=== PATIENT | female | born 1995 | race Caucasian/White ===

== ENCOUNTER 2016-05-17 18:23 | Emergency (ER) | payer OTHER ==
[2016-05-17] MEDS ORDERED: Al Hydrox/Mg Hydrox/Simet LIQ* 30 ML UDC PO ONE (19:08)
[2016-05-17] MEDS ORDERED: Ranitidine TAB (NF) 150 MG TAB PO ONE (19:10)
--- NOTE | 2016-05-17 19:23 | ED ---
HPI Chest Pain - HPI Summary HPI Summary: 35 week pt here w/ central chest pain since this morning. Constant - feels like a dull ache w/ intermittent sharp pain exacerbated and alleviated by nothing. Denies new onset of shortness of breath - has been experiencing this w/ reclining only since and unchanged today. No radiating pain into arm/jaw, no diaphoresis. Has nausea throughout which she had again this morning as well. Denies vomiting. Eating and drinking do not alleviate nor exacerbate her sx. She's also tried tums w/o relief. She does report a h/o GERD, even before . Also reports taking flagyl for 5 days now d/t a BV infection which presented as ab pain w/ sitting up - better since taking flagyl. No injury, trauma to chest nor overuse of UE's. Denies resp sx/illness such as fever, chills, coughing, sneezing, rhinorrhea, otalgia, ST, skin changes (ie, rash, vesicles, bruising). No known sick contacts. Imms are UTD, including influenza vaccine which she received earlier on in . Takes daily prenantal vit w/ iron. No known h/o anemia. No h/o issues w/ clotting abnormally - denies prolonged sitting, travel, calf pain, increased heart rate. She does mention she had an issue while on control ( implanon) w/ sx of dizziness and change in blood pressure. No known issues w/ BP throughout and follows w/ OBGYN routinely. Feels baby moving. - History of Current Complaint Chief Complaint: EDChestWallPain Time Seen by Provider: 05/17/16 18:46 Hx Obtained From: Patient, Family/Test Preparer - partner Pain Intensity: 4 - Allergy/Home Medications Allergies/Adverse Reactions: Allergies Allergy/AdvReac Type Severity Reaction Status Date / Time Sulfa Antibiotics Allergy Intermediate Hives Verified 05/17/16 18:54 Home Medications: Home Medications metroNIDAZOLE TAB* [Flagyl 250 mg TAB*] 250 mg PO BID 05/17/16 [History Confirmed 05/17/16] PMH/Surg Hx/FS Hx/Imm Hx Previously Healthy: Yes Endocrine/Hematology History: Denies: Hx Anticoagulant Therapy, Hx Diabetes, Hx Thyroid Disease, Hx Anemia , Hx Coagulopothy, Autoimmune Disease Cardiovascular History: Reports: Other Cardiovascular Problems/Disorders - BP issues while on control Denies: Hx Aneurysm, Hx Congenital Heart Disease, Hx Deep Vein Thrombosis, Hx Embolism, Hx Hypertension, Hx Myocardial Infarction, Hx Pacemaker/ICD, Hx Valvular Heart Disease Respiratory History: Denies: Hx Asthma, Hx Chronic Obstructive Pulmonary Disease (COPD), Hx Pneumonia, Hx Pulmonary Embolism GI History: Reports: Hx Gastroesophageal Reflux Disease Denies: Hx Cirrhosis, Hx Crohn's Disease, Hx Diverticulosis, Hx Gall Bladder Disease, Hx Gastrointestinal Bleed, Hx Hiatal Hernia, Hx Irritable Bowel, Hx Ulcer History: Denies: Hx Renal Disease Sensory History: Reports: Hx Contacts or Glasses Opthamlomology History: Reports: Hx Contacts or Glasses Neurological History: Reports: Hx Headaches - Frequent H/A Denies: Hx Dementia, Hx Seizures Psychiatric History: Denies: Hx Substance Abuse - Immunization History Date of Tetanus Vaccine: Up to Date Date of Influenza Vaccine: December 2011 Infectious Disease History: No Infectious Disease History: Denies: Hx Hepatitis, Hx Human Immunodeficiency Virus (HIV), Traveled Outside the [place] in Last 30 Days - Family History Known Family History: Positive: Cardiac Disease - elderly family - Social History Occupation: Employed Full-time Lives: With Family Alcohol Use: None Hx Substance Use: No Substance Use Type: Reports: None Hx Tobacco Use: No Smoking Status (MU): Never Smoked Tobacco Review of Systems Negative: Fever, Chills, Fatigue ENT: Negative Negative: Dental Pain Cardiovascular: Other - see HPI Positive: Shortness Of Breath - see HPI. Negative: Cough Gastrointestinal: Other - moving bowels and urinating as usual w/o difficulty Positive: Nausea. Negative: Abdominal Pain, Vomiting, Diarrhea Positive: no symptoms reported Musculoskeletal: Negative Skin: Negative Neurological: Negative Psychological: Normal All Other Systems Reviewed And Are Negative: Yes Physical Exam Triage Information Reviewed: Yes Vital Signs On Initial Exam: Initial Vitals Temp Pulse Resp BP Pulse Ox 99.0 F 99 24 153/96 100 05/17/16 18:24 05/17/16 18:24 05/17/16 18:24 05/17/16 18:24 05/17/16 18:24 Vital Signs Reviewed: Yes Appearance: Positive: Well-Appearing, No Pain Distress, Well-Nourished Skin: Positive: Warm, Dry - no erythema, no vesicles over chest Head/Face: Positive: Normal Head/Face Inspection Eyes: Positive: Normal, EOMI, Conjunctiva Clear - anictertic sclera ENT: Positive: Hearing grossly normal, Pharynx normal - mucosa moist Neck: Positive: Supple, Nontender Respiratory/Lung Sounds: Positive: Clear to Auscultation, Breath Sounds Present. Negative: Rales, Rhonchi, Stridor, Wheezes Cardiovascular: Positive: Normal - possible mild TTP over sternum?, RRR, Pulses are Symmetrical in both Upper and Lower Extremities, S1, S2. Negative: Murmur, Rub, Leg Edema Left, Leg Edema Right - (-) Joyce's sign B/L Abdomen Description: Positive: Soft, Other: - ab - mild TTP over epigastric area - difficult to asses normally d/t body habitus. Negative: CVA Tenderness (R), CVA Tenderness (L), Hernia @ Bowel Sounds: Positive: Present Pelvic Exam: Positive: other - deferred Musculoskeletal: Positive: Normal, Strength/ROM Intact Neurological: Positive: Normal, Sensory/Motor Intact, Alert, Oriented to Person Place, Time, CN Intact II-III Psychiatric: Positive: Normal - [place] Coma Scale Coma Scale Total: 15 Diagnostics - Vital Signs Vital Signs Temp Pulse Resp BP Pulse Ox 05/17/16 18:40 105 118/88 97 05/17/16 18:24 99.0 F 99 24 153/96 100 - Laboratory Result Diagrams: 05/17/16 19:10 05/17/16 19:10 Lab Statement: Any lab studies that have been ordered have been reviewed, and results considered in the medical decision making process. Chest Pain Course/Dx - Course Course Of Treatment: 35 week pt here w/ chest pain. After ruling out life threatening pathologies and pt improving w/ GI cocktail, d/c'd w/ dx of GERD. Pt will f/u w/ [facility] and aware of danger s/sx of when to return to ED. HR was WNL for gestational age. - Diagnoses Provider Diagnoses: Gastroesophageal reflux disease, Discharge - Discharge Plan Condition: Stable Disposition: HOME Patient Education Materials: Gastroesophageal Reflux Disease (ED), at 35 to 38 Weeks (ED) Referrals: No Primary Care Phys,NOPCP [Primary Care Provider] - Additional Instructions: Your symptoms today appear to be related to GERD, a reflux disorder of the stomach and esophagus. With your fetus growing and pushing up into your diaphragm, this may persist or even worsen over the remaining course of your . You may take zantac and maalox for relief. It is also suggested that you try eating multiple small meals and avoid lying down after eating to prevent worsening of symptoms. *If you develop vomiting, fever, chills, abdominal pain, return to ED Follow-up with your OBGYN this week for other options if no relief with recommendations made today.
[2016-05-17 19:24] LABS: Hematocrit 37 % (35-47); Hemoglobin 12.4 g/dl (12.0-16.0); Mean Corpuscular HGB Conc 34 g/dl (31-36); Mean Corpuscular Hemoglobin 31 pg (27-31); Mean Corpuscular Volume 93 fL (80-97); Mean Platelet Volume 8 um3 (7.4-10.4); Red Blood Count 3.97 10^6/ul (4.0-5.4); Red Cell Distribution Width 13 % (10.5-15); White Blood Count 11.3 10^3/ul (3.5-10.8)
[2016-05-17] MEDS ORDERED: Famotidine TAB* 20 MG PO ONE (19:31)
[2016-05-17 19:40] LABS: Albumin 3.2 g/dL (3.2-5.2); BUN/Creatinine Ratio 27.5 (8-20); Calcium 8.9 mg/dL (8.6-10.3); EGFR African American 193.9 (>60); EGFR Non-African American 150.8 (>60); Globulin 3.2 g/dL (2-4); Magnesium 1.8 mg/dL (1.9-2.7); Total Bilirubin 0.4 mg/dL (0.2-1.0); Total Protein 6.4 g/dL (6.4-8.9)
[2016-05-17 20:18] LABS: TSH (Thyroid Stimulating Horm) 2.7 mcIU/mL (0.34-5.60)
[2016-05-17 20:44] LABS: Urine Bacteria 1+ (Absent); Urine Bilirubin Negative (Negative); Urine Glucose Negative (Negative); Urine Nitrite Negative (Negative)
[2016-05-17 21:27] VITALS: BP 117/63
== END 2016-05-17 21:26 | disposition home or self-care (01) ==
LOC: ED 18:23
DX: K21.9 Gastro-esophageal reflux disease without esophagitis (principal); O26.93 Pregnancy related conditions, unspecified, third trimester; R07.9 Chest pain, unspecified; Z3A.35 35 weeks gestation of pregnancy; R06.02 Shortness of breath; R11.0 Nausea
CPT/HCPCS: 36415; 80053; 81003; 81015; 83605; 83690; 83735; 84443; 84484; 85025; 87086; 93005; 99283; A9270-GY

== ENCOUNTER 2016-06-10 14:18 | Inpatient (IN) | payer OTHER ==
[2016-06-10 15:53] LABS: Hematocrit 39 % (35-47); Hemoglobin 12.5 g/dl (12.0-16.0); Mean Corpuscular HGB Conc 33 g/dl (31-36); Mean Corpuscular Hemoglobin 30 pg (27-31); Mean Corpuscular Volume 93 fL (80-97); Mean Platelet Volume 10 um3 (7.4-10.4); Red Blood Count 4.12 10^6/ul (4.0-5.4); Red Cell Distribution Width 13 % (10.5-15); White Blood Count 17.9 10^3/ul (3.5-10.8)
[2016-06-10 15:59] LABS: Add Diff/Slide Review? Slide Review Added; Comments Flag Yes
[2016-06-10] MEDS ORDERED: OBEPIDURAL* 250 ML ONE (16:31)
[2016-06-10] MEDS ORDERED: Phenylephrine IV* 40 MCG/ML 10 ML SYRINGE IV PUSH PRN ×2 (19:27)
[2016-06-10] MEDS ORDERED: EPHEDrine (Pressors)* 50 MG/ML VIAL IV PUSH PRN ×2 (19:27)
[2016-06-10] MEDS ORDERED: OBEPIDURAL* 250 ML EPIDURAL SCH (20:00)
[2016-06-11] MEDS ORDERED: Oxytocin in LR* 0 UNITS/0 ML BAG IVPB ONE (00:33)
[2016-06-11] MEDS ORDERED: Witch Hazel PAD* JAR TOPICAL PRN (01:39)
[2016-06-11] MEDS ORDERED: Acetaminophen TAB* 325 MG PO PRN (01:39)
[2016-06-11] MEDS ORDERED: Dibucaine 1% 28.35 GM TUBE PR PRN (01:39)
[2016-06-11] MEDS ORDERED: Glycerin ADULT SUPP PR PRN (01:39)
[2016-06-11] MEDS: Ibuprofen TAB* 600 MG PO PRN ×3 (04:21→18:20)
[2016-06-11] MEDS: Docusate CAP* 100 MG PO SCH ×3 (09:10→22:43)
[2016-06-12 07:14] LABS: Hematocrit 32 % (35-47); Hemoglobin 10.4 g/dl (12.0-16.0); Mean Corpuscular HGB Conc 33 g/dl (31-36); Mean Corpuscular Hemoglobin 31 pg (27-31); Mean Corpuscular Volume 94 fL (80-97); Mean Platelet Volume 9 um3 (7.4-10.4); Red Blood Count 3.37 10^6/ul (4.0-5.4); Red Cell Distribution Width 13 % (10.5-15); White Blood Count 15.3 10^3/ul (3.5-10.8)
[2016-06-12] MEDS: Docusate CAP* 100 MG PO SCH ×3 (08:51→22:15)
[2016-06-12] MEDS: Ibuprofen TAB* 600 MG PO PRN ×3 (08:53→22:15)
[2016-06-12] MEDS ORDERED: Ferrous Gluconate TAB* 324 MG TAB PO SCH (09:00)
[2016-06-13] MEDS: Ibuprofen TAB* 600 MG PO PRN (08:25)
[2016-06-13] MEDS: Docusate CAP* 100 MG PO SCH (08:25)
[2016-06-13 08:35] VITALS: BP 103/61
== END 2016-06-13 11:26 | disposition home or self-care (01) | DRG 560 ==
LOC: MCHOBOUT 14:18 → MCHOB 14:41
PROVIDERS: ADMIT Midwife; ATTEND Midwife
PROC: 10E0XZZ Delivery of Products of Conception, External Approach (ICD-10-PCS; principal; 2016-06-11)
PROC: 10907ZC Drainage of Amniotic Fluid, Therapeutic from Products of Conception, Via Natural or Artificial Opening (ICD-10-PCS; 2016-06-11)
PROC: 0KQM0ZZ Repair Perineum Muscle, Open Approach (ICD-10-PCS; 2016-06-11)
DX: O70.1 Second degree perineal laceration during delivery (principal); Z37.0 Single live birth; Z88.2 Allergy status to sulfonamides; Z3A.39 39 weeks gestation of pregnancy; Z91.030 Bee allergy status
CPT/HCPCS: 36415; 85025; 85027; 86850; 86900; 86901; A9270-GY

== ENCOUNTER 2016-08-15 08:55 | Emergency (ER) | payer OTHER ==
[2016-08-15 09:09] VITALS: BP 109/60
--- NOTE | 2016-08-15 10:17 | UC ---
Dental HPI - HPI Summary HPI Summary: Patient arrives to with CC of pain over left lower molar radiating to the jaw and ear with slight swelling x 2 days. Denies trismus, drooling or dysphagia. Pain is 5/10, sharp and throbbing. Denies airway compromise or SOB. Denies ear pain, eye pain, blurry vision or double vision. Otherwise healthy. Pain is worse with chewing and cold drinks, better with Tylenol, but only improves slightly. She is currently . - History of Current Complaint Chief Complaint: UCDentalProblem Stated Complaint: DENTAL COMPLAINT Time Seen by Provider: 08/15/16 10:03 Hx Obtained From: Patient Hx Last Menstrual Period: 06/11/16 delivered boy ?: No Onset/Duration: Sudden Onset Pain Intensity: 5 Pain Scale Used: 0-10 Numeric Aggravating: Cold Alleviating: Nothing Related History: Swelling - Allergies/Home Medications Allergies/Adverse Reactions: Allergies Allergy/AdvReac Type Severity Reaction Status Date / Time Sulfa Antibiotics Allergy Intermediate Hives Verified 08/15/16 09:09 PMH/Surg Hx/FS Hx/Imm Hx Previously Healthy: Yes Other History Of: Negative For: Anticoagulant Therapy - Surgical History Surgical History: None - Family History Known Family History: Positive: Cardiac Disease - elderly family - Social History Occupation: Employed Full-time Lives: With Family Alcohol Use: None Substance Use Type: None Smoking Status (MU): Never Smoked Tobacco Have You Smoked in the Last Year: No - Immunization History Most Recent Influenza Vaccination: 12/15/15 Most Recent Tetanus Shot: 2012 Most Recent Pneumonia Vaccination: 2012 Review of Systems Constitutional: Negative Skin: Negative Eyes: Negative ENT: Dental Pain Respiratory: Negative Cardiovascular: Negative Neurovascular: Negative Musculoskeletal: Negative Neurological: Negative All Other Systems Reviewed And Are Negative: Yes Physical Exam Triage Information Reviewed: Yes Appearance: Well-Appearing, No Pain Distress, Well-Nourished Vital Signs: Initial Vital Signs Temp 98.2 F 08/15/16 09:06 Pulse 55 08/15/16 09:06 Resp 18 08/15/16 09:06 BP 109/60 08/15/16 09:06 Pulse Ox 100 08/15/16 09:06 Vital Signs Reviewed: Yes Eye Exam: Normal Eyes: Positive: Conjunctiva Clear ENT: Positive: Pharynx normal Dental: Positive: Percussion Tenderness @ - left lower molar Neck exam: Normal Neck: Positive: Supple, No Lymphadenopathy, Other: - tenderness at anterior cervical LN Respiratory Exam: Normal Respiratory: Positive: Chest non-tender, Lungs clear Cardiovascular Exam: Normal Cardiovascular: Positive: RRR Musculoskeletal Exam: Normal Musculoskeletal: Positive: Strength Intact, ROM Intact Psychological Exam: Normal Psychological: Positive: Normal Response To Family, Age Appropriate Behavior Skin Exam: Normal Dental Complaint Course/Dx - Course Course Of Treatment: No dental abscess or lesions seen over area of concern. No erythema at site of pain. No drainage from area. Pain on palpation over mandible. No TMJ tenderness. Slight pain with opening and closing mouth. Will treat for possible dental infection/abscess based on symptoms of pain and radiation to jaw and ear. No allergies. Will treat with Keflex. Patient to follow up immediately with dentist. Patient is , per UTD, Keflex safe in women. Encouraged Tylenol. - Differential Dx/Diagnosis Differential Diagnosis/Dx: Dental Abscess, Dental Caries, Odontogenic Pain Provider Diagnoses: Dental Pain Discharge - Discharge Plan Condition: Stable Disposition: HOME Prescriptions: Cephalexin CAP* [Keflex CAP*] 500 mg PO QID #28 cap MDD 4 Patient Education Materials: Dental Abscess (ED) Referrals: No Primary Care Phys,NOPCP [Primary Care Provider] - Additional Instructions: You have been diagnosed with dental pain with possible infection: Antibiotics as prescribed to you. 500mg Keflex 4 x daily x 7 days. Salt water rinses several times per day will improve healing time. Tylenol three times daily with meals for discomfort. Follow up with a dentist for routine care to prevent recurrence of infections. If fever, worsening pain or swelling develops, see your PCP, dentist or come back to the Emergency Department. Images Dental: 1 - pain with swelling, no evidence of abscess
== END 2016-08-15 10:15 | disposition home or self-care (01) ==
LOC: UCEAST 08:55
DX: K08.89 Other specified disorders of teeth and supporting structures (principal)
CPT/HCPCS: 99212; G0463

== ENCOUNTER 2016-11-11 09:55 | Emergency (ER) | payer OTHER ==
[2016-11-11] MEDS ORDERED: Ketorolac INJ* 30 MG/ML 1 ML VIAL IV ONE (10:27)
[2016-11-11] MEDS ORDERED: Metoclopramide IV* 5 MG/ML 2 ML VIAL IV ONE (10:27)
[2016-11-11] MEDS ORDERED: NS 0.9% 1000 ML* 1,000 ML IV ONE (10:27)
[2016-11-11] MEDS ORDERED: diPHENhydraMINE IV* 50 MG/ML 1 ml VIAL (BENADRYL) IV ONE (10:29)
[2016-11-11 10:52] LABS: Hematocrit 41 % (35-47); Mean Corpuscular HGB Conc 34 g/dl (31-36); Mean Corpuscular Hemoglobin 30 pg (27-31); Mean Corpuscular Volume 89 fL (80-97); Mean Platelet Volume 8 um3 (7.4-10.4); Red Blood Count 4.66 10^6/ul (4.0-5.4); Red Cell Distribution Width 13 % (10.5-15); White Blood Count 5.7 10^3/ul (3.5-10.8)
[2016-11-11 11:04] LABS: ALT 13 U/L (7-52); AST 11 U/L (13-39); Albumin 4.4 g/dL (3.2-5.2); Alkaline Phosphatase 76 U/L (34-104); Anion Gap 6 mmol/L (2-11); BUN/Creatinine Ratio 28.4 (8-20); Blood Urea Nitrogen 21 mg/dL (6-24); C Reactive Protein 3.37 mg/L (< 5.00); CO2 Carbon Dioxide 26 mmol/L (22-32); Calcium 9.3 mg/dL (8.6-10.3); Chloride 105 mmol/L (101-111); EGFR African American 126.2 (>60); EGFR Non-African American 98.1 (>60); Globulin 2.7 g/dL (2-4); Glucose 105 mg/dL (70-100); Lipase 12 U/L (11.0-82.0); Potassium 3.9 mmol/L (3.5-5.0); Sodium 137 mmol/L (133-145); Total Protein 7.1 g/dL (6.4-8.9)
[2016-11-11 11:10] LABS: Urine Bacteria Absent (Absent); Urine Bilirubin Negative (Negative); Urine Glucose Negative (Negative); Urine Nitrite Negative (Negative)
[2016-11-11 11:51] VITALS: BP 102/65
--- NOTE | 2016-11-11 12:20 | ED ---
Influenza-Like Illness - HPI Summary HPI Summary: Patient presents to the ED with flu like symptoms. She presents with N/V and migraine THOMAS x 2 days which has been worsening today. She states today is the first day of going back to work from her maternity leave and has a history of anxiety. She notes to some anxiety while driving to work today, but thought it was unrelated to her other symptoms. She states she has had similar symptoms of feelings of flu-like illness when she was on OCP's. Since discontinuing her OCP use, she has not had any complaints until today. Denies abdominal pain, back pain or urinary symptoms. Denies recent illness, sick contacts or travel. She denies constipation and diarrhea. Vomiting x 2 without hematemesis. Denies vaginal bleeding. Denies chance of . She endorses sweats and chills but denies fevers. She is otherwise healthy and takes no medications. She denies SOB, chest pain, weakness, stiff neck, blurry vision or double vision. Visual disturbances include photophobia. Hx of migraine THOMAS for which she takes ibuprofen for relief. Denies this helping this morning. On arrival to ED she is feeling improved, but would still like blood work. - History of Current Complaint Chief Complaint: EDGeneral Time Seen by Provider: 11/11/16 10:07 Hx Obtained From: Patient Onset/Duration: Gradual Onset Severity: Moderate Associated Signs & Symptoms: F/C, Headache, Vomiting Related Hx: Possible Flu/Infectious Exposure - Risk Factors Influenza Risk Factors: Negative - Allergy/Home Medications Allergies/Adverse Reactions: Allergies Allergy/AdvReac Type Severity Reaction Status Date / Time Sulfa Antibiotics Allergy Intermediate Hives Verified 11/11/16 10:05 PMH/Surg Hx/FS Hx/Imm Hx Previously Healthy: Yes Endocrine/Hematology History: Denies: Hx Anticoagulant Therapy, Hx Diabetes, Hx Thyroid Disease, Hx Anemia Cardiovascular History: Reports: Other Cardiovascular Problems/Disorders - BP issues while on control Denies: Hx Aneurysm, Hx Congenital Heart Disease, Hx Deep Vein Thrombosis, Hx Embolism, Hx Hypertension, Hx Myocardial Infarction, Hx Pacemaker/ICD, Hx Valvular Heart Disease Respiratory History: Denies: Hx Asthma, Hx Chronic Obstructive Pulmonary Disease (COPD), Hx Pneumonia, Hx Pulmonary Embolism GI History: Reports: Hx Gastroesophageal Reflux Disease Denies: Hx Cirrhosis, Hx Crohn's Disease, Hx Diverticulosis, Hx Gall Bladder Disease, Hx Gastrointestinal Bleed, Hx Hiatal Hernia, Hx Irritable Bowel, Hx Ulcer History: Denies: Hx Renal Disease Sensory History: Reports: Hx Contacts or Glasses Opthamlomology History: Reports: Hx Contacts or Glasses Neurological History: Reports: Hx Headaches - Frequent H/A Denies: Hx Dementia, Hx Seizures Psychiatric History: Denies: Hx Substance Abuse - Immunization History Date of Tetanus Vaccine: Up to Date Date of Influenza Vaccine: December 2011 Infectious Disease History: No Infectious Disease History: Denies: Hx Hepatitis, Hx Human Immunodeficiency Virus (HIV), Traveled Outside the [place] in Last 30 Days - Family History Known Family History: Positive: Cardiac Disease - elderly family - Social History Occupation: Employed Part-time Lives: With Family Alcohol Use: None Hx Substance Use: No Substance Use Type: Reports: None Hx Tobacco Use: No Smoking Status (MU): Never Smoked Tobacco Have You Smoked in the Last Year: No Review of Systems Constitutional: Negative Positive: Chills, Fatigue, Skin Diaphoresis. Negative: Fever Positive: Photophobia. Negative: Blurred Vision, Diplopia ENT: Negative Cardiovascular: Negative Negative: Palpitations, Chest Pain Respiratory: Negative Negative: Shortness Of Breath, Cough Positive: Vomiting, Nausea. Negative: Abdominal Pain, Diarrhea Positive: no symptoms reported, see HPI Musculoskeletal: Negative Skin: Negative Positive: Headache. Negative: Weakness, Paresthesia, Numbness Positive: Anxious All Other Systems Reviewed And Are Negative: Yes Physical Exam Triage Information Reviewed: Yes Vital Signs On Initial Exam: Initial Vitals Temp Pulse Resp BP Pulse Ox 98.2 F 78 22 130/83 99 11/11/16 09:57 11/11/16 09:57 11/11/16 09:57 11/11/16 09:57 11/11/16 09:57 Vital Signs Reviewed: Yes Appearance: Positive: Well-Appearing, Well-Nourished Skin: Positive: Warm, Skin Color Reflects Adequate Perfusion Head/Face: Positive: Normal Head/Face Inspection Eyes: Positive: EOMI, TRAE, Conjunctiva Clear Neck: Positive: Supple, No Lymphadenopathy Respiratory/Lung Sounds: Positive: Clear to Auscultation, Breath Sounds Present Cardiovascular: Positive: Normal, RRR, Pulses are Symmetrical in both Upper and Lower Extremities Abdomen Description: Positive: Nontender, No Organomegaly, Soft. Negative: CVA Tenderness (R), CVA Tenderness (L), Distended, Guarding, McBur[place]'s Point Tenderness, Splenomegaly Bowel Sounds: Positive: Present Pelvic Exam: Positive: other - deferred Musculoskeletal: Positive: Normal, Strength/ROM Intact Neurological: Positive: Sensory/Motor Intact, Alert, Oriented to Person Place, Time, Speech Normal Psychiatric: Positive: Normal AVPU Assessment: Alert - [place] Coma Scale Coma Scale Total: 15 Diagnostics - Vital Signs Vital Signs Temp Pulse Resp BP Pulse Ox 11/11/16 11:52 88 18 102/65 11/11/16 11:34 102/65 11/11/16 11:33 71 99 11/11/16 11:30 68 99 11/11/16 11:00 86 121/72 98 11/11/16 10:30 66 14 142/94 98 11/11/16 10:02 98 17 99 11/11/16 10:00 129/78 11/11/16 09:57 98.2 F 78 22 130/83 99 - Laboratory Lab Results: Lab Results 11/11/16 11/11/16 11/11/16 Range/Units 10:34 10:34 10:45 WBC 5.7 (3.5-10.8) 10^3/ul RBC 4.66 (4.0-5.4) 10^6/ul Hgb 14.0 (12.0-16.0) g/dl Hct 41 (35-47) % MCV 89 (80-97) fL MCH 30 (27-31) pg MCHC 34 (31-36) g/dl RDW 13 (10.5-15) % Plt Count 231 (150-450) 10^3/ul MPV 8 (7.4-10.4) um3 Neut % (Auto) 59.4 (38-83) % Lymph % (Auto) 29.5 (25-47) % [place] % (Auto) 9.1 H (1-9) % Eos % (Auto) 1.7 (0-6) % Baso % (Auto) 0.3 (0-2) % Absolute Neuts (auto) 3.4 (1.5-7.7) 10^3/ul Absolute Lymphs (auto) 1.7 (1.0-4.8) 10^3/ul Absolute Monos (auto) 0.5 (0-0.8) 10^3/ul Absolute Eos (auto) 0.1 (0-0.6) 10^3/ul Absolute Basos (auto) 0 (0-0.2) 10^3/ul Absolute Nucleated RBC 0 10^3/ul Nucleated RBC % 0 Sodium 137 (133-145) mmol/L Potassium 3.9 (3.5-5.0) mmol/L Chloride 105 (101-111) mmol/L Carbon Dioxide 26 (22-32) mmol/L Anion Gap 6 (2-11) mmol/L BUN 21 (6-24) mg/dL Creatinine 0.74 (0.51-0.95) mg/dL Est GFR ( Amer) 126.2 (>60) Est GFR (Non-Af Amer) 98.1 (>60) BUN/Creatinine Ratio 28.4 H (8-20) Glucose 105 H (70-100) mg/dL Calcium 9.3 (8.6-10.3) mg/dL Total Bilirubin 0.90 (0.2-1.0) mg/dL AST 11 L (13-39) U/L ALT 13 (7-52) U/L Alkaline Phosphatase 76 (34-104) U/L C-Reactive Protein 3.37 (< 5.00) mg/L Total Protein 7.1 (6.4-8.9) g/dL Albumin 4.4 (3.2-5.2) g/dL Globulin 2.7 (2-4) g/dL Albumin/Globulin Ratio 1.6 (1-3) Lipase 12 (11.0-82.0) U/L Beta HCG, Quant < 0.60 mIU/mL Urine Color Yellow Urine Appearance Clear Urine pH 5.0 (5-9) Ur Specific [place] 1.023 (1.010-1.030) Urine Protein Negative (Negative) Urine Ketones Negative (Negative) Urine Blood 3+ H (Negative) Urine Nitrate Negative (Negative) Urine Bilirubin Negative (Negative) Urine Urobilinogen Negative (Negative) Ur Leukocyte Esterase Negative (Negative) Urine WBC (Auto) Absent (Absent) Urine RBC (Auto) 3+(>10/hpf) H (Absent) Ur Squamous Epith Cells Present H (Absent) Urine Bacteria Absent (Absent) Urine Glucose Negative (Negative) Influenza A (Rapid) (Negative) Influenza B (Rapid) (Negative) 11/11/16 Range/Units 10:47 WBC (3.5-10.8) 10^3/ul RBC (4.0-5.4) 10^6/ul Hgb (12.0-16.0) g/dl Hct (35-47) % MCV (80-97) fL MCH (27-31) pg MCHC (31-36) g/dl RDW (10.5-15) % Plt Count (150-450) 10^3/ul MPV (7.4-10.4) um3 Neut % (Auto) (38-83) % Lymph % (Auto) (25-47) % [place] % (Auto) (1-9) % Eos % (Auto) (0-6) % Baso % (Auto) (0-2) % Absolute Neuts (auto) (1.5-7.7) 10^3/ul Absolute Lymphs (auto) (1.0-4.8) 10^3/ul Absolute Monos (auto) (0-0.8) 10^3/ul Absolute Eos (auto) (0-0.6) 10^3/ul Absolute Basos (auto) (0-0.2) 10^3/ul Absolute Nucleated RBC 10^3/ul Nucleated RBC % Sodium (133-145) mmol/L Potassium (3.5-5.0) mmol/L Chloride (101-111) mmol/L Carbon Dioxide (22-32) mmol/L Anion Gap (2-11) mmol/L BUN (6-24) mg/dL Creatinine (0.51-0.95) mg/dL Est GFR ( Amer) (>60) Est GFR (Non-Af Amer) (>60) BUN/Creatinine Ratio (8-20) Glucose (70-100) mg/dL Calcium (8.6-10.3) mg/dL Total Bilirubin (0.2-1.0) mg/dL AST (13-39) U/L ALT (7-52) U/L Alkaline Phosphatase (34-104) U/L C-Reactive Protein (< 5.00) mg/L Total Protein (6.4-8.9) g/dL Albumin (3.2-5.2) g/dL Globulin (2-4) g/dL Albumin/Globulin Ratio (1-3) Lipase (11.0-82.0) U/L Beta HCG, Quant mIU/mL Urine Color Urine Appearance Urine pH (5-9) Ur Specific [place] (1.010-1.030) Urine Protein (Negative) Urine Ketones (Negative) Urine Blood (Negative) Urine Nitrate (Negative) Urine Bilirubin (Negative) Urine Urobilinogen (Negative) Ur Leukocyte Esterase (Negative) Urine WBC (Auto) (Absent) Urine RBC (Auto) (Absent) Ur Squamous Epith Cells (Absent) Urine Bacteria (Absent) Urine Glucose (Negative) Influenza A (Rapid) Negative (Negative) Influenza B (Rapid) Negative (Negative) Result Diagrams: 11/11/16 10:34 11/11/16 10:34 Lab Statement: Any lab studies that have been ordered have been reviewed, and results considered in the medical decision making process. Flu Symptom Course/Dx - Course Course Of Treatment: Patient is evaluated for N/V and migraine. During the course of treatment, labs were obtained and some dehydration noted but otherwise normal. 1L fluids given. Migraine is 9/10, not worst of life, and patient has a history of. Toradol 30mg, reglan and benadryl given with relief. Patient is requesting to go home feeling better. Flu negative. She notes it was likely d/t anxiety. Encouarged to follow up with PCP or return to ED for worsening symptoms. Return precautions given. Patient understands and agrees with plan. Ok for discharge. VS stable on arrival and discharge. - Diagnoses Differential Diagnosis/HQI/PQRI: Positive: Influenza, Pneumonia, Upper Respiratory Infection, Other - anxiety Provider Diagnoses: Migraine, Vomiting Discharge - Discharge Plan Condition: Stable Disposition: HOME Patient Education Materials: Migraine Headache (ED) Referrals: No Primary Care Phys,NOPCP [Primary Care Provider] - Additional Instructions: Follow up with your PCP If any symptoms become worse, return to the ED immediately.
== END 2016-11-11 11:54 | disposition home or self-care (01) ==
LOC: ED 09:55
DX: G43.909 Migraine, unspecified, not intractable, without status migrainosus (principal); R53.83 Other fatigue; R11.10 Vomiting, unspecified
CPT/HCPCS: 36415; 80053; 81003; 81015; 83690; 84702; 85025; 86140; 87502; 96374; 96375; 99282; J1200; J1885; J2765

== ENCOUNTER 2017-04-13 12:25 | Emergency (ER) | payer OTHER ==
[2017-04-13 14:40] VITALS: BP 102/67
--- NOTE | 2017-04-13 14:47 | UC ---
FLU HPI - HPI Summary HPI Summary: Aches chills cough and congestion for a couple of days - History of Current Complaint Chief Complaint: UCGeneralIllness Stated Complaint: SORE THROAT,COUGH Time Seen by Provider: 04/13/17 14:47 Hx Obtained From: Patient Hx Last Menstrual Period: 03/19/17 ?: No Onset/Duration: Sudden Onset Severity Currently: Moderate Severity Initially: Moderate Pain Intensity: 6 Pain Scale Used: 0-10 Numeric Associated Signs & Symptoms: Positive: Cough, Sore Throat, Nasal Congestion, Headache - Allergy/Home Medications Allergies/Adverse Reactions: Allergies Allergy/AdvReac Type Severity Reaction Status Date / Time Sulfa (Sulfonamide Allergy Hives Verified 04/13/17 12:37 Antibiotics) Home Medications: Home Medications NK [No Home Medications Reported] 04/13/17 [History Confirmed 04/13/17] PMH/Surg Hx/FS Hx/Imm Hx Previously Healthy: Yes Other History Of: Negative For: Anticoagulant Therapy - Surgical History Surgical History: None - Family History Known Family History: Positive: Cardiac Disease - elderly family - Social History Occupation: Unemployed Lives: With Family Alcohol Use: None Substance Use Type: None Smoking Status (MU): Never Smoked Tobacco Have You Smoked in the Last Year: No - Immunization History Most Recent Influenza Vaccination: 12/15/15 Most Recent Tetanus Shot: 2012 Most Recent Pneumonia Vaccination: 2012 Review of Systems Constitutional: Chills, Fatigue Skin: Negative Eyes: Negative ENT: Sore Throat, Nasal Discharge Respiratory: Cough Cardiovascular: Negative Gastrointestinal: Negative Genitourinary: Negative Motor: Negative Neurovascular: Negative Musculoskeletal: Myalgia Neurological: Headache Psychological: Negative Is Patient Immunocompromised?: No All Other Systems Reviewed And Are Negative: Yes Physical Exam Triage Information Reviewed: Yes Appearance: Well-Appearing, No Pain Distress, Well-Nourished Vital Signs: Initial Vital Signs Temp 97.9 F 04/13/17 12:37 Pulse 100 04/13/17 12:37 Resp 16 04/13/17 12:37 BP 117/71 04/13/17 12:37 Pulse Ox 100 04/13/17 12:37 Vital Signs Reviewed: Yes Eye Exam: Normal Eyes: Positive: Conjunctiva Clear ENT Exam: Normal ENT: Positive: Normal ENT inspection, Hearing grossly normal, Pharynx normal, TMs normal, Uvula midline. Negative: Nasal congestion, Nasal drainage, Trismus , Muffled voice, Hoarse voice, Dental tenderness, Sinus tenderness Neck exam: Normal Neck: Positive: Supple, Nontender, No Lymphadenopathy Respiratory Exam: Normal Respiratory: Positive: Chest non-tender, Lungs clear, Normal breath sounds, No respiratory distress, No accessory muscle use Cardiovascular Exam: Normal Cardiovascular: Positive: RRR, No Murmur, Pulses Normal, Brisk Capillary Refill Musculoskeletal Exam: Normal Musculoskeletal: Positive: Strength Intact, ROM Intact, No Edema Neurological Exam: Normal Neurological: Positive: Alert, Muscle Tone Normal Psychological Exam: Normal Skin Exam: Normal Diagnostics - Laboratory Diagnostic Studies Completed/Ordered: Influenza A/B (-) Flu Course/Dx - Course Course Of Treatment: increase fluids rest tylenol/ibuprofen otc medications for symptom relief follow with pcp - Differential Dx/Diagnosis Provider Diagnoses: Viral Syndrome, URI Discharge - Discharge Plan Condition: Stable Disposition: HOME Patient Education Materials: Upper Respiratory Infection (ED), Viral Syndrome ( ED) Forms: *Work Release Referrals: [facility] REFERRAL [Outside] - If Needed
== END 2017-04-13 15:31 | disposition home or self-care (01) ==
LOC: UCEAST 12:25
DX: B34.9 Viral infection, unspecified (principal); J06.9 Acute upper respiratory infection, unspecified; Z88.2 Allergy status to sulfonamides
CPT/HCPCS: 87502; 99211; G0463

== ENCOUNTER 2018-03-25 12:35 | Emergency (ER) | payer OTHER ==
[2018-03-25 13:29] VITALS: BP 107/71
--- NOTE | 2018-03-25 13:34 | UC ---
Throat Pain/Nasal [place] HPI - HPI Summary HPI Summary: 23 year old female presents with onset of sore throat 4 days ago. States next day developed fatigue, general malaise, headache, body aches, fever, nasal congestion, and non-productive cough. Max temperature 103.5 F. Last fever this morning. Today noted some white spots on her tonsils. Denies dysphagia, chest pain, shortnes of breath, abdominal pain, nausea, vomiting, or diarrhea. - History of Current Complaint Chief Complaint: UCGeneralIllness Stated Complaint: SORE THROAT Time Seen by Provider: 03/25/18 13:31 Hx Obtained From: Patient Hx Last Menstrual Period: 03/17/18 Pain Intensity: 8 - Allergies/Home Medications Allergies/Adverse Reactions: Allergies Allergy/AdvReac Type Severity Reaction Status Date / Time Sulfa (Sulfonamide Allergy Hives Verified 03/25/18 13:29 Antibiotics) PMH/Surg Hx/FS Hx/Imm Hx Previously Healthy: Yes - Denies significant PMH Other History Of: Negative For: Anticoagulant Therapy - Surgical History Surgical History: None Surgery Procedure, Year, and Place: denies - Family History Known Family History: Positive: Cardiac Disease - elderly family - Social History Occupation: Employed Full-time Lives: With Family Alcohol Use: None Substance Use Type: None Smoking Status (MU): Never Smoked Tobacco Have You Smoked in the Last Year: No - Immunization History Most Recent Influenza Vaccination: 12/15/15 Most Recent Tetanus Shot: 2012 Most Recent Pneumonia Vaccination: 2012 Review of Systems All Other Systems Reviewed And Are Negative: Yes Constitutional: Positive: Fever, Chills, Fatigue Skin: Negative: Rash Eyes: Negative: Drainage, Eye Redness ENT: Positive: Sore Throat, Nasal Discharge, Sinus Congestion. Negative: Ear Ache, Sinus Pain/Tenderness Respiratory: Positive: Cough. Negative: Shortness Of Breath Cardiovascular: Negative: Palpitations, Chest Pain Gastrointestinal: Negative: Abdominal Pain, Vomiting, Diarrhea, Nausea Genitourinary: Positive: Negative Musculoskeletal: Positive: Negative Neurological: Positive: Negative, Headache Physical Exam - Summary Physical Exam Summary: GENERAL APPEARANCE: Well developed, well nourished, alert and cooperative, and appears to be in no acute distress. EYES: Conjunctiva clear. No drainage. Vision is grossly intact. EARS: External auditory canals and tympanic membranes clear, hearing grossly intact. NOSE: Mild-moderate nasal congestion with mucosal erythema and edema. THROAT: Pharyngeal erythema. 2+ tonsils with exudate. Oral cavity normal. Teeth and gingiva in good general condition. NECK: Neck supple, non-tender without lymphadenopathy. CARDIAC: Normal S1 and S2. No S3, S4 or murmurs. Rhythm is regular. There is no peripheral edema, cyanosis or pallor. Extremities are warm and well perfused. Capillary refill is less than 2 seconds. LUNGS: Clear to auscultation without rales, rhonchi, wheezing or diminished breath sounds. Non-productive cough. ABDOMEN: Positive bowel sounds. Soft, nondistended, nontender. No guarding or rebound. No masses or hepatosplenomegally. MUSKULOSKELETAL: ROM intact to all extremities. No joint erythema or tenderness. Normal muscular development. Normal gait. SKIN: Skin normal color, texture and turgor with no lesions or eruptions. Triage Information Reviewed: Yes Vital Signs: Initial Vital Signs Temp 98.2 F 03/25/18 13:25 Pulse 97 03/25/18 13:25 Resp 92 03/25/18 13:25 BP 107/71 03/25/18 13:25 Pulse Ox 99 03/25/18 13:25 Vital Signs Reviewed: Yes Diagnostics - Laboratory Diagnostic Studies Completed/Ordered: Rapid strep negative. Throat Pain/Nasal Course/Dx - Course Course Of Treatment: 23 year old female presents with onset of sore throat 4 days ago. States next day developed fatigue, general malaise, headache, body aches, fever, nasal congestion, and non-productive cough. Max temperature 103.5 F. Last fever this morning. Today noted some white spots on her tonsils. Denies dysphagia, chest pain, shortnes of breath, abdominal pain, nausea, vomiting, or diarrhea. Afebrile. VSS. Exam revealed an adult female in no acute distress. Mild-moderate nasal congestion with mucosal erythema and edema. Pharyngeal erythema. 2+ tonsils with exudate. Bilateral breath sounds clear. Cough non- productive. Rapid strep negative. Recommending symptomatic treatment for viral URI vs influenza. She is to follow up with PCP within 7 days if no improvement in symptoms. Warning symptoms reviewed with patient. Verbalizes understanding and agrees with POC. - Differential Dx/Diagnosis Differential Diagnosis/HQI/PQRI: Influenza, Mononucleosis, Otitis Media, Peritonsillar Abscess, Pharyngitis, Tonsillitis, URI Provider Diagnosis: Viral URI with cough Discharge - Sign-Out/Discharge Documenting (check all that apply): Patient Departure All imaging exams completed and their final reports reviewed: No Studies - Discharge Plan Condition: Stable Disposition: HOME Patient Education Materials: Upper Respiratory Infection (ED) Referrals: No Primary Care Phys,NOPCP [Primary Care Provider] - Additional Instructions: The rapid strep test performed today was negative. Your history and exam are consistent with a viral upper respiratory infection. Viral infections do not respond to antibiotics and are limited to the treatment of symptoms. Viral infections typically run their course in 7-10 days. Drink plenty of fluids to avoid dehydration especially if you are running any fever. Use a saline rinse kit such as Neti Pot or NeilMed at least twice a day to help thin secretions and promote drainage of the sinuses. Use over the counter fluticasone (Flonase) nasal spray 2 sprays each nostril once daily. Use over the counter Sudafed according to directions to help with congestion. Take over the counter acetaminophen (Tylenol) or ibuprofen (Advil, Motrin) according to directions as needed for pain or fever. Use salt water gargles several times a day if you have a sore throat. You may also use Chloraseptic spray or Cepacol lonzenges according to directions which contain a numbing medication and can provide some temporary relief from your sore throat. Follow up with your primary care provider in 7 days if symptoms persist. Seek immediate medical attention in the emergency room if you have fever greater than 100.5 F despite taking acetaminophen or ibuprofen, have chest pain , difficulty breathing, are unable to swallow, or have any worsening of symptoms. - Billing Disposition and Condition Condition: STABLE Disposition: Home
== END 2018-03-25 14:18 | disposition home or self-care (01) ==
LOC: UCEAST 12:35
DX: J06.9 Acute upper respiratory infection, unspecified (principal); R05 Cough; Z88.2 Allergy status to sulfonamides
CPT/HCPCS: 87651; 99211; G0463

== ENCOUNTER 2018-10-18 11:39 | Emergency (ER) | payer OTHER ==
[2018-10-18] MEDS ORDERED: NS 0.9% 1000 ML** 2,000 ML IV ONE (12:16)
[2018-10-18 12:41] LABS: ABS Eosinophils 0.1 10^3/ul (0-0.6); ABS Lymphocytes 1.8 10^3/ul (1.0-4.8); ABS Monocytes 0.5 10^3/ul (0-0.8); ABS Neutrophils 3.8 10^3/ul (1.5-7.7); Eosinophil % 1.9 %; Hematocrit 37 % (35-47); Hemoglobin 12.6 g/dL (12.0-16.0); Lymphocyte % 28.4 %; Mean Corpuscular HGB Conc 34 g/dL (31-36); Mean Corpuscular Hemoglobin 31 pg (27-31); Mean Corpuscular Volume 91 fL (80-97); Mean Platelet Volume 7.7 fL (7.4-10.4); Platelet Count 216 10^3/uL (150-450); Red Blood Count 4.09 10^6 /uL (3.70-4.87); Red Cell Distribution Width 12 % (10-15); White Blood Count 6.2 10^3/uL (3.5-10.8)
[2018-10-18] MEDS ORDERED: Metoclopramide IV* 5 MG/ML 2 ML VIAL IV SLOW PU ONE (12:51)
[2018-10-18 12:59] LABS: Albumin 3.8 g/dL (3.2-5.2); Albumin/Globulin Ratio 1.5 (1-3); BUN/Creatinine Ratio 22.6 (8-20); C Reactive Protein 7.91 mg/L (<8.01); Calcium 9.1 mg/dL (8.6-10.3); EGFR African American 143.1 (>60); EGFR Non-African American 118.3 (>60); Globulin 2.5 g/dL (2-4); Potassium 3.6 mmol/L (3.5-5.0); Total Bilirubin 0.3 mg/dL (0.2-1.0); Total Protein 6.3 g/dL (6.4-8.9)
--- NOTE | 2018-10-18 13:03 | ED ---
GI/ HPI - HPI Summary HPI Summary: 23 year old female presents with nausea and vomiting for past month. She states that has been very fatigued. She states that she had a 20 pound weight loss in the past month. She states that she had a positive test in September. She states that she has been nauseous every day all day. States that certain foods triggers her nausea. She admits to occasional shortness of breath when she ambulates. She is not currently short of breath. No chest pain. no pain or swelling in calf muscles. No vomiting. No vaginal bleeding. No abnormal vaginal discharge. Denies any urinary symptoms. - History of Current Complaint Chief Complaint: EDNauseaVomitDiarrh Time Seen by Provider: 10/18/18 11:49 Stated Complaint: -UNABLE TO EAT OR DRINK PER PT Hx Last Menstrual Period: 03/17/18 Pain Intensity: 0 - Allergy/Home Medications Allergies/Adverse Reactions: Allergies Allergy/AdvReac Type Severity Reaction Status Date / Time Sulfa (Sulfonamide Allergy Hives Verified 10/18/18 11:46 Antibiotics) Home Medications: Home Medications Vitamin TAB* 1 tab PO DAILY 10/18/18 [History Confirmed 10/18/18] PMH/Surg Hx/FS Hx/Imm Hx Endocrine/Hematology History: Denies: Hx Anticoagulant Therapy, Hx Diabetes, Hx Thyroid Disease, Hx Anemia Cardiovascular History: Reports: Other Cardiovascular Problems/Disorders - BP issues while on control Denies: Hx Aneurysm, Hx Congenital Heart Disease, Hx Deep Vein Thrombosis, Hx Embolism, Hx Hypertension, Hx Myocardial Infarction, Hx Pacemaker/ICD, Hx Valvular Heart Disease Respiratory History: Denies: Hx Asthma, Hx Chronic Obstructive Pulmonary Disease (COPD), Hx Pneumonia, Hx Pulmonary Embolism GI History: Reports: Hx Gastroesophageal Reflux Disease Denies: Hx Cirrhosis, Hx Crohn's Disease, Hx Diverticulosis, Hx Gall Bladder Disease, Hx Gastrointestinal Bleed, Hx Hiatal Hernia, Hx Irritable Bowel, Hx Ulcer History: Denies: Hx Renal Disease Sensory History: Reports: Hx Contacts or Glasses Opthamlomology History: Reports: Hx Contacts or Glasses Neurological History: Reports: Hx Headaches - Frequent H/A Denies: Hx Dementia, Hx Seizures Psychiatric History: Denies: Hx Substance Abuse - Surgical History Surgery Procedure, Year, and Place: denies - Immunization History Date of Tetanus Vaccine: Up to Date Date of Influenza Vaccine: December 2011 Infectious Disease History: No Infectious Disease History: Denies: Hx Hepatitis, Hx Human Immunodeficiency Virus (HIV), Traveled Outside the [place] in Last 30 Days - Family History Known Family History: Positive: Cardiac Disease - elderly family - Social History Alcohol Use: None Hx Substance Use: No Substance Use Type: Reports: None Hx Tobacco Use: No Smoking Status (MU): Never Smoked Tobacco Have You Smoked in the Last Year: No Review of Systems Positive: Fatigue. Negative: Fever Negative: Chest Pain Negative: Shortness Of Breath - non currently Positive: Vomiting, Nausea. Negative: Abdominal Pain All Other Systems Reviewed And Are Negative: Yes Physical Exam Triage Information Reviewed: Yes Vital Signs On Initial Exam: Initial Vitals Temp Pulse Resp BP Pulse Ox 98.4 F 78 16 145/93 99 10/18/18 11:43 10/18/18 11:43 10/18/18 11:43 10/18/18 11:43 10/18/18 11:43 Vital Signs Reviewed: Yes Appearance: Positive: Well-Appearing Skin: Positive: Warm, Dry Head/Face: Positive: Normal Head/Face Inspection Eyes: Positive: Normal, Conjunctiva Clear ENT: Positive: Pharynx normal Respiratory/Lung Sounds: Positive: Clear to Auscultation, Breath Sounds Present Cardiovascular: Positive: Normal, RRR Abdomen Description: Positive: Nontender, Soft Bowel Sounds: Positive: Present Musculoskeletal: Positive: Normal Neurological: Positive: Normal Psychiatric: Positive: Normal Diagnostics - Vital Signs Vital Signs Temp Pulse Resp BP Pulse Ox 10/18/18 12:25 75 109/79 98 10/18/18 12:00 83 98 10/18/18 11:55 85 144/77 98 10/18/18 11:43 98.4 F 78 16 145/93 99 - Laboratory Lab Results: Lab Results 10/18/18 10/18/18 10/18/18 Range/Units 12:35 12:35 12:35 WBC 6.2 (3.5-10.8) 10^3/uL RBC 4.09 (3.70-4.87) 10^6 /uL Hgb 12.6 (12.0-16.0) g/dL Hct 37 (35-47) % MCV 91 (80-97) fL MCH 31 (27-31) pg MCHC 34 (31-36) g/dL RDW 12 (10-15) % Plt Count 216 (150-450) 10^3/uL MPV 7.7 (7.4-10.4) fL Neut % (Auto) 61.4 % Lymph % (Auto) 28.4 % [place] % (Auto) 8.1 % Eos % (Auto) 1.9 % Baso % (Auto) 0.2 % Absolute Neuts (auto) 3.8 (1.5-7.7) 10^3/ul Absolute Lymphs (auto) 1.8 (1.0-4.8) 10^3/ul Absolute Monos (auto) 0.5 (0-0.8) 10^3/ul Absolute Eos (auto) 0.1 (0-0.6) 10^3/ul Absolute Basos (auto) 0.0 (0-0.2) 10^3/ul Absolute Nucleated RBC 0.0 10^3/ul Nucleated RBC % 0.0 Sodium 136 (135-145) mmol/L Potassium 3.6 (3.5-5.0) mmol/L Chloride 107 (101-111) mmol/L Carbon Dioxide 23 (22-32) mmol/L Anion Gap 6 (2-11) mmol/L BUN 14 (6-24) mg/dL Creatinine 0.62 (0.51-0.95) mg/dL Est GFR ( Amer) 143.1 (>60) Est GFR (Non-Af Amer) 118.3 (>60) BUN/Creatinine Ratio 22.6 H (8-20) Glucose 94 (70-100) mg/dL Lactic Acid 0.6 (0.5-2.0) mmol/L Calcium 9.1 (8.6-10.3) mg/dL Magnesium 2.0 (1.9-2.7) mg/dL Total Bilirubin 0.30 (0.2-1.0) mg/dL AST 10 L (13-39) U/L ALT 12 (7-52) U/L Alkaline Phosphatase 53 (34-104) U/L C-Reactive Protein 7.91 (<8.01) mg/L Total Protein 6.3 L (6.4-8.9) g/dL Albumin 3.8 (3.2-5.2) g/dL Globulin 2.5 (2-4) g/dL Albumin/Globulin Ratio 1.5 (1-3) Lipase 13 (11.0-82.0) U/L Beta HCG, Quant Pending Result Diagrams: 10/18/18 12:35 10/18/18 12:35 Lab Statement: Any lab studies that have been ordered have been reviewed, and results considered in the medical decision making process. Re-Evaluation - Re-Evaluation First Eval Re-Evaluation Time: 14:05 Change: Improved Comment: able to tolerate crackers GIGU Course/Dx - Course Course Of Treatment: 23 year old female presents with nausea and vomiting for past month. She states that has been very fatigued. She states that she had a 20 pound weight loss in the past month. She states that she had a positive test in September. She states that she has been nauseous every day all day. States that certain foods triggers her nausea. She admits to occasional shortness of breath when she ambulates. She is not currently short of breath. No chest pain. no pain or swelling in calf muscles. No vomiting. No vaginal bleeding. No abnormal vaginal discharge. Denies any urinary symptoms. On exam nontender abdomen. Lungs clear to auscultation. wbc normal. electroltyes normal. hcg pos. urine potential infection will wait for culture. Gave fluids and Reglan and feeling better. tolerated crackers. will discharge with reglan. patient understand and agrees with plan. - Diagnoses Differential Diagnoses - Female: , Urinary Tract Infection, Vomiting Provider Diagnoses: Vomiting during Discharge - Sign-Out/Discharge Documenting (check all that apply): Patient Departure Patient Received Moderate/Deep Sedation with Procedure: No - Discharge Plan Condition: Good Disposition: HOME Prescriptions: Metoclopramide TAB* [Reglan TAB*] 10 mg PO Q6H PRN #20 tab PRN Reason: Nausea Patient Education Materials: Nausea and Vomiting in (ED) Referrals: Katerin Schroeder MD [Medical Doctor] - Additional Instructions: Take reglan every 6 hours for break through vomiting Eat a small snack throughout the day, drink liquids as tolerated Follow up with obgyn Return to ED if develop any new or worsening symptoms - Billing Disposition and Condition Condition: GOOD Disposition: Home
[2018-10-18 13:24] LABS: Urine Appearance Clear; Urine Bacteria 1+ (Absent); Urine Bilirubin Negative (Negative); Urine Blood Negative (Negative); Urine Color Yellow; Urine Glucose Negative (Negative); Urine Ketones Negative (Negative); Urine Nitrite Negative (Negative); Urine Protein Negative (Negative); Urine Red Blood Cell Absent (Absent); Urine Specific Gravity 1.021 (1.010-1.030); Urine Squamous Epithelial Cell Present (Absent); Urine Urobilinogen Negative (Negative); Urine White Blood Cell Trace(0-5/hpf) (Absent)
[2018-10-18 14:59] VITALS: BP 103/69
== END 2018-10-18 14:57 | disposition home or self-care (01) ==
LOC: ED 11:39
DX: O21.0 Mild hyperemesis gravidarum (principal); Z3A.00 Weeks of gestation of pregnancy not specified; Z88.2 Allergy status to sulfonamides; K21.9 Gastro-esophageal reflux disease without esophagitis
CPT/HCPCS: 36415; 80053; 81003; 81015; 83605; 83690; 83735; 84702; 85025; 86140; 87086; 96374; 99283; J2765

== ENCOUNTER 2019-05-22 01:26 | Inpatient (IN) | payer OTHER ==
[2019-05-22] MEDS ORDERED: Lactated Ringers 1000 ML Bag* 1,000 ML IV ONE ×2 (01:57→06:27)
[2019-05-22] MEDS ORDERED: Buffered Lidocaine 1% SYRIN* 1 ML/SYRINGE INTRADERM ONE (01:57)
[2019-05-22] MEDS ORDERED: Lactated Ringers 1000 ML Bag* 1,000 ML IV SCH ×3 (02:00→14:00)
--- NOTE | 2019-05-22 02:22 | HP ---
General Information - Reason for Visit SROM to clear fluid at 0100, active labor - General Information Maternal Age: 24 Grav: 2 Para: 1 SAB: 0 IEA: 0 Estimated Due Date: 06/01/19 Determined By: LMP Gestational Age in Weeks/Days: 38 4/7 Maternal Blood Type and Rh: O Positive - Results this Serology/RPR Result: Non-Reactive Rubella Result: Immune HBsAg Result: Negative HIV Result: Negative GBS Culture Result: Negative Past Medical History Delivery History: Hx Uncomplicated Vaginal Delivery Pertinent Past Medical History: Non-Contributory Pertinent Past Surgical History: None Pertinent Family History: Non-Contributory - Antepartal Records Antepartal Records: Reviewed, Uncomplicated Review of Systems Constitutional: Comfortable CV Complaint: No Respiratory: Shortness of Breath: No Gastrointestinal: No Nausea/Vomiting, Normal Bowel Movement Genitourinary: Leaking Fluid, No Dysuria, No Bleeding Musculoskeletal: No Epigastric Pain, Contractions Neurological: No Headache, No Visual Changes Movement: Normal Exam Allergies/Adverse Reactions: Allergies Sulfa (Sulfonamide Antibiotics) Allergy (Intermediate, Verified 05/22/19 02:00) Hives T-98.4, P-95, R-20, BP-129/85, O2-97% - Measurements Height: 5 ft 3 in Weight: 94.347 kg Weight in lbs: 208.488780 Body Mass Index (BMI): 36.8 Pre- Weight: 65.317 kg Weight Gained This : 64 lbs and 0 ozs - Exam Breast: Breast Exam Deferred CVA: No CVA Tenderness Extremities: No Edema Heart: Normal Rhythm/Heart Sounds HEENT: No Significant Findings Lungs: Clear Bilaterally Rectal: Rectal Exam Deferred Reflexes: DTR 2+ Thyroid: No Thyromegaly - Abdominal Exam Abdomen Exam: Non-Tender, Fundal Height Consistent with Dates - Ultrasound/Biophysical Profile Ultrasound Status: Not Done Targeted Exam Findings See L&D Outpatient Visit Provider Note for Findings: N/A Estimated Weight: 8# Cervical Exam: 3cm Effacement: 80% Station: 0 Presenting Part: Vertex Membrane Status: SROM Amniotic Fluid Evaluation: Gross Rupture Bleeding/Discharge: None EFM Findings - External Monitor Findings Baseline Heart Rate: 140 External Monitor Findings: No Pattern of Variable or Late Decelerations, Variability Moderate, Baseline Stable, Accelerations Absent Contractions: Regular, Mild, 45-90 Seconds Contraction Frequency: 4 minutes Assessment/Plan - Assessment 24 year old at 38 5/7 weeks gestation with ruptured membranes in active labor. No evidence of acidemia. - Plan Plan: Admit - Anticipate Vaginal Delivery Plan Comment: Continue EFM until reactive tracing. - Date/Time of Admission Date of Admission: 05/22/19 Time of Admission: 02:00
[2019-05-22 03:04] LABS: Hematocrit 35 % (35-47); Hemoglobin 11.6 g/dL (12.0-16.0); Mean Corpuscular HGB Conc 33 g/dL (31-36); Mean Corpuscular Hemoglobin 30 pg (27-31); Mean Corpuscular Volume 91 fL (80-97); Mean Platelet Volume 8.4 fL (7.4-10.4); Platelet Count 223 10^3/uL (150-450); Red Blood Count 3.88 10^6 /uL (3.70-4.87); Red Cell Distribution Width 13 % (10-15); White Blood Count 13.4 10^3/uL (3.5-10.8)
[2019-05-22 03:24] LABS: Urine Benzodiazepine Screen None Detected (None Detect); Urine Opiates Screen None Detected (None Detect)
--- NOTE | 2019-05-22 03:52 | PN ---
Progress Note - Progress Note Date of Service: 05/22/19 SOAP: Subjective: Pt feeling pressure with ctx, comfortable in between. Objective: Cervix: 5cm/ 80%/ 0 station/ vtx FHR: 140 per doppler following reactive tracing UCs: 3-4 minutes Assessment: Pt in active labor, no evidence of acidemia. Plan: Pt declines need for pain management at this time. Continue to monitor, labor support and comfort measures as needed. Anticipate progression to full dilation and .
[2019-05-22] MEDS ORDERED: OBEPIDURAL* 250 ML EPIDURAL ONE (05:49)
--- NOTE | 2019-05-22 06:21 | PN ---
Progress Note - Progress Note Date of Service: 05/22/19 SOAP: Subjective: Pt reports ctx increasingly intense, requests epidural. Objective: Cervix: 6cm/ 80%/ -1/ vtx Fluid clear FHR: 140 per doppler UCs: 2-4 minutes Assessment: Pt making steady progress. No evidence of acidemia or chorioamnionitis. Plan: Anesthesia notified for epidural. Continue to monitor maternal and status closely. Anticipate progression to full dilation and .
[2019-05-22] MEDS ORDERED: Sodium Citrate/Citric Acid* 15 ML UDC PO PRN (06:27)
[2019-05-22] MEDS ORDERED: Phenylephrine 40 MCG/ML SYRINGE IV PUSH PRN ×2 (06:27)
[2019-05-22] MEDS ORDERED: OBEPIDURAL* 250 ML EPIDURAL SCH (07:00)
--- NOTE | 2019-05-22 08:34 | PN ---
Progress Note - Progress Note Date of Service: 05/22/19 Note: S: Feeling more discomfort down low. Was able to get a nap. O: B/P: 96/58, P: 102, R: 16, T: 97.8 FHR: baseline 130, moderate variability, + accelerations, no decelerations UCs: q4-6, moderate VE: 5-6/80/posterior, unchanged from previous exam A: IUP at 38 4/7 weeks Category I FHR, no evidence of metabolic acidemia GBS negative P: PARQ discussion re: starting low-dose pitocin. Sybil agrees Reassess PRN Anticipate SVB
[2019-05-22] MEDS ORDERED: Oxytocin in LR* 20 UNITS/1,000 ML BAG IVPB SCH ×2 (09:00→14:00)
[2019-05-22] MEDS ORDERED: NS 0.9% 50 ML* 50 ML IV ONE (13:03)
[2019-05-22] MEDS ORDERED: Glycerin ADULT SUPP PR PRN (13:11)
[2019-05-22] MEDS ORDERED: Witch Hazel PAD* JAR TOPICAL PRN (13:11)
[2019-05-22] MEDS ORDERED: Acetaminophen TAB* 325 MG PO PRN (13:11)
[2019-05-22] MEDS ORDERED: Dibucaine 1% 28.35 GM TUBE PR PRN (13:11)
[2019-05-22] MEDS ORDERED: diPHENhydraMINE PO* 25 MG PO ONE (13:14)
[2019-05-22] MEDS: Ibuprofen TAB* 600 MG PO PRN ×2 (14:22→20:38)
[2019-05-22] MEDS: Docusate CAP* 100 MG PO SCH ×2 (14:22→20:39)
[2019-05-22] MEDS ORDERED: Simethicone TAB* 80 MG TAB.CHEW PO SCH (17:30)
[2019-05-22] MEDS ORDERED: Lidocaine 1% INJ* 10 MG/ML 30 ML SDV ONE (17:53)
--- NOTE | 2019-05-22 18:25 | PROCNOTE ---
[facility] OB: Delivery Note - Delivery A Date of : 05/22/19 Time of : 12:39 [place] Sex: Female Weight at : 8 lb 8 oz Score 1 Minute: 3 Score 5 Minutes: 7 Gestational Age in Weeks and Days at Delivery: 38 Weeks and 4 Days Delivery Method: Spontaneous Vaginal Labor: Spontaneous Did Patient attempt ?: N/A, No Previous Amniotic Fluid: Clear Estimated Blood Loss: 350 Anesthesia/Analgesia: CEI for Labor Delivered By: Nilda Monroy - Nursery Level of Nursery: Regular/Bedside - Perineum Perineal Injury: Perineal Laceration, 1st Degree Perineal Injury Comment: extention to right labia Perineal Repair: By Delivering Practioner - Events Delivery Events of Note: Pitocin During Labor, Pitocin Only After Delivery - Additional Delivery Notes Additional Delivery Notes: experienced SROM to clear fluid at 0045, progressed to active labor. Received CEI per preference with good relief. Labor augmented with low dose pitocin. Began pushing with good maternal effort at 1154. Difficulty finding FHR with electronic monitor last 5-6 minutes of pushing. Slow, controlled delivery of head OA to CHELSEA, loose nuchal x 1 reduced. Shoulders followed easily with strong maternal effort, female infant delivered to maternal abdomen. Infant limp, HR<100, no respirations. Cord clamped x 2 and cut by banner painter, to warmer for resuscitation. Received suctioning, PPV, stimulation. Automatic Oven Operator present, to NICU for further observation. Apgars 3, 7 and 9. Pitocin increased to 150 cc for active management of third stage of labor. Placenta delivered at 1254 via juan a, membranes and placenta intact. Fundus firm with massage. Vagina and perineum carefully inspected, repair as above under lidocaine infiltration. Mother and infant now both stable , feeding plan is breast. EBL = 350 cc
[2019-05-23] MEDS: Ibuprofen TAB* 600 MG PO PRN ×3 (03:27→16:17)
[2019-05-23 05:42] LABS: ABS Eosinophils 0.1 10^3/ul (0-0.6); ABS Lymphocytes 2.5 10^3/ul (1.0-4.8); ABS Neutrophils 7.7 10^3/ul (1.5-7.7); Hematocrit 32 % (35-47); Hemoglobin 10.5 g/dL (12.0-16.0); Lymphocyte % 21.9 %; Mean Corpuscular HGB Conc 33 g/dL (31-36); Mean Corpuscular Hemoglobin 30 pg (27-31); Mean Corpuscular Volume 91 fL (80-97); Mean Platelet Volume 8.4 fL (7.4-10.4); Platelet Count 175 10^3/uL (150-450); Red Blood Count 3.48 10^6 /uL (3.70-4.87); Red Cell Distribution Width 13 % (10-15); White Blood Count 11.4 10^3/uL (3.5-10.8)
[2019-05-23] MEDS ORDERED: Ferrous Gluconate TAB* 324 MG TAB PO SCH (09:00)
[2019-05-23] MEDS: Docusate CAP* 100 MG PO SCH ×2 (10:17→16:18)
[2019-05-23 12:08] VITALS: BP 107/64
== END 2019-05-23 16:51 | disposition home or self-care (01) | DRG 560 ==
LOC: MCHOBOUT 01:26 → MCHOB 01:59
PROVIDERS: ADMIT Midwife; ATTEND Midwife
PROC: 10E0XZZ Delivery of Products of Conception, External Approach (ICD-10-PCS; principal; 2019-05-22)
PROC: 4A1HXCZ Monitoring of Products of Conception, Cardiac Rate, External Approach (ICD-10-PCS; 2019-05-22)
PROC: 0HQ9XZZ Repair Perineum Skin, External Approach (ICD-10-PCS; 2019-05-22)
DX: O69.81X0 Labor and delivery complicated by cord around neck, without compression, not applicable or unspecified (principal); Z37.0 Single live birth; O70.0 First degree perineal laceration during delivery; Z3A.38 38 weeks gestation of pregnancy; Z88.2 Allergy status to sulfonamides; Z91.030 Bee allergy status
CPT/HCPCS: 36415; 80307; 85025; 85027; 86850; 86900; 86901; A9270-GY; G0480

== ENCOUNTER 2019-05-29 22:58 | Emergency (ER) | payer OTHER ==
[2019-05-29] MEDS ORDERED: NS 0.9% 1000 ML** 1,000 ML IV ONE (23:06)
[2019-05-29] MEDS ORDERED: Ondansetron INJ* 2 MG/ML VIAL IV ONE (23:07)
[2019-05-29] MEDS ORDERED: Ketorolac INJ* 30 MG/ML 1 ML VIAL IV PUSH ONE (23:07)
--- NOTE | 2019-05-29 23:11 | ED ---
Abdominal Pain/Female - HPI Summary HPI Summary: 24 year old female presents to the ED with a chief complaint of left-sided flank pain starting at 1999 today. Patient reports feeling unwell all day with nausea. Patient denies vomiting and fever, having checked her temperature earlier. At around 1999 her pain suddenly appeared. It is described as colicy 10 /10 pain. Patient is 1 week post-, . had no complications and she currently breast feeds. No history of kidney stones. - History of Current Complaint Chief Complaint: EDFlankPain Stated Complaint: LEFT SIDED ABD PAIN Time Seen by Provider: 05/29/19 23:04 Hx Obtained From: Patient Hx Last Menstrual Period: 03/17/18 ?: No - 1 week post Onset/Duration: Sudden Onset, Lasting Hours Timing: Constant Severity Initially: Severe Severity Currently: Severe Pain Intensity: 10 Pain Scale Used: 0-10 Numeric Location: Flank - left Radiates: No Character: Sharp, Colicy Alleviating Factor(s): Nothing Associated Signs and Symptoms: Positive: Nausea. Negative: Fever, Vomiting Allergies/Adverse Reactions: Allergies Allergy/AdvReac Type Severity Reaction Status Date / Time Sulfa (Sulfonamide Allergy Intermediate Hives Verified 05/29/19 22:59 Antibiotics) Home Medications: Home Medications Vitamin TAB* 1 tab PO DAILY 10/18/18 [History Confirmed 05/22/19] Acetaminophen TAB* [Tylenol TAB*] 650 mg PO Q4H PRN tab 05/23/19 [Rx] Dibucaine 1% OINT* [Nupercainal 1% oint*] 1 applic SC QID PRN tube 05/23/19 [Rx ] Docusate CAP* [Colace Cap*] 100 mg PO TID cap 05/23/19 [Rx] Ferrous Gluconate TAB* [Fergon TAB*] 324 mg PO BID tab 05/23/19 [Rx] Ibuprofen TAB* [Motrin TAB* 600 MG] 600 mg PO Q6H PRN tab 05/23/19 [Rx] Witch Nilam PAD* [Tucks*] 1 pad TOPICAL .PRN PRN jar 05/23/19 [Rx] Ondansetron ODT TAB* [Zofran 4 MG Odt TAB*] 8 mg PO Q6H PRN #12 tab.odt [Rx] oxyCODONE/Acetamin 5/325 MG* [Percocet 5/325 TAB*] 2 tab PO Q4H PRN #16 tab MDD 6 tabs 05/30/19 [Rx] PMH/Surg Hx/FS Hx/Imm Hx Endocrine/Hematology History: Denies: Hx Anticoagulant Therapy, Hx Diabetes, Hx Thyroid Disease, Hx Anemia Cardiovascular History: Reports: Other Cardiovascular Problems/Disorders - BP issues while on control Denies: Hx Aneurysm, Hx Congenital Heart Disease, Hx Deep Vein Thrombosis, Hx Embolism, Hx Hypertension, Hx Myocardial Infarction, Hx Pacemaker/ICD, Hx Valvular Heart Disease Respiratory History: Denies: Hx Asthma, Hx Chronic Obstructive Pulmonary Disease (COPD), Hx Pneumonia, Hx Pulmonary Embolism GI History: Reports: Hx Gastroesophageal Reflux Disease Denies: Hx Cirrhosis, Hx Crohn's Disease, Hx Diverticulosis, Hx Gall Bladder Disease, Hx Gastrointestinal Bleed, Hx Hiatal Hernia, Hx Irritable Bowel, Hx Ulcer History: Denies: Hx Renal Disease Sensory History: Reports: Hx Contacts or Glasses Opthamlomology History: Reports: Hx Contacts or Glasses Neurological History: Reports: Hx Headaches - Frequent H/A Denies: Hx Dementia, Hx Seizures Psychiatric History: Denies: Hx Substance Abuse - Surgical History Surgery Procedure, Year, and Place: denies - Immunization History Date of Tetanus Vaccine: Up to Date Date of Influenza Vaccine: December 2011 Infectious Disease History: No Infectious Disease History: Denies: Hx Hepatitis, Hx Human Immunodeficiency Virus (HIV), Traveled Outside the [place] in Last 30 Days - Family History Known Family History: Positive: Cardiac Disease - elderly family - Social History Alcohol Use: None Hx Substance Use: No Substance Use Type: Reports: None Hx Tobacco Use: No Smoking Status (MU): Never Smoked Tobacco Have You Smoked in the Last Year: No Review of Systems Negative: Fever Positive: Nausea. Negative: Vomiting Positive: flank pain All Other Systems Reviewed And Are Negative: Yes Physical Exam - Summary Physical Exam Summary: Appearance: Well-appearing, Well-nourished, standing. Appearing to be in colicky pain. Skin: Warm, dry, no obvious rash Eyes: sclera anicteric, no conjunctival pallor HENT: mucous membranes moist, pharynx appears normal Neck: Supple, nontender Respiratory: Clear to auscultation, no signs of respiratory distress Cardiovascular: Normal S1, S2. No murmurs. Normal distal pulses in tibial and radial bilaterally. Abdomen: Soft, nontender, normal active bowel sounds present Musculoskeletal: Normal, Strength/ROM Intact Neurological: A&Ox3, awake and alert, mentation is normal, speech is fluent and appropriate Psychiatric: affect is normal, does not appear anxious or depressed Triage Information Reviewed: Yes Vital Signs On Initial Exam: Initial Vitals Temp Pulse Resp BP Pulse Ox 98.0 F 72 18 122/87 98 05/29/19 22:59 05/29/19 22:59 05/29/19 22:59 05/29/19 22:59 05/29/19 22:59 Vital Signs Reviewed: Yes Procedures - Sedation Patient Received Moderate/Deep Sedation with Procedure: No Diagnostics - Vital Signs Vital Signs Temp Pulse Resp BP Pulse Ox 05/29/19 22:59 98.0 F 72 18 122/87 98 - Laboratory Result Diagrams: 05/29/19 23:20 05/29/19 23:20 Lab Statement: Any lab studies that have been ordered have been reviewed, and results considered in the medical decision making process. - CT Abd CT CT Interpretation Completed By: Radiologist Summary of CT Findings: IMPRESSION: 1. There is a 2 mm calculus in the terminal left ureter with mild left. obstructive uropathy. There is nonobstructive right nephrolithiasis. 2. There is prominence of the uterus consistent with status. An ED physician has reviewed this report. AP CT CT Interpretation Completed By: Radiologist Summary of CT Findings: IMPRESSION: 1. There is a 2 mm calculus in the terminal left ureter with mild left. obstructive uropathy. There is nonobstructive right nephrolithiasis. 2. There is prominence of the uterus consistent with status. An ED physician has reviewed this report. Abdominal Pain Fem Course/Dx - Course Course Of Treatment: 24 year old female presents to the ED with a chief complaint of left-sided flank pain starting at 1999 today. Patient reports feeling unwell all day with nausea. Patient denies vomiting and fever, having checked her temperature earlier. At around 2000 her pain suddenly appeared. It is described as colicy 10/10 pain. Patient is 1 week post-, . had no complications and she currently breast feeds. No history of kidney stones. Upon exam, patient is standing, appearing to be in colicky pain. Lab results show CO2 21, creatinine 1.32, glucose 124, alk phos 113, and total protein 6.2. Abdominal/Pelvic CT impression: 1. There is a 2 mm calculus in the terminal left ureter with mild left. obstructive uropathy. There is nonobstructive right nephrolithiasis. 2. There is prominence of the uterus consistent with status. Diagnosis is left-sided kidney stone. Patient will be discharged home with instructions to follow up with Dr. Shankar, urology. Patient understands and agrees with this plan. - Diagnoses Provider Diagnoses: Kidney stone on left side Is Visit Related: No Discharge ED - Sign-Out/Discharge Documenting (check all that apply): Patient Departure - discharge home - Discharge Plan Condition: Stable Disposition: HOME Prescriptions: Ondansetron ODT TAB* [Zofran 4 MG Odt TAB*] 8 mg PO Q6H PRN #12 tab.odt PRN Reason: Nausea oxyCODONE/Acetamin 5/325 MG* [Percocet 5/325 TAB*] 2 tab PO Q4H PRN #16 tab MDD 6 tabs PRN Reason: Pain - Severe Patient Education Materials: Kidney Stones (ED), How to Strain Your Urine (ED) Referrals: Jeremiah Tiwari MD [Medical Doctor] - Additional Instructions: The cause of your pain tonight appears to be a kidney stone stuck in the left ureter. It is small and should pass on its own over the weekend. If not, contact Dr. Tiwari's office and he or his partner should be able to help you with this. The CT scan also showed stones in the right kidney that are not causing any present trouble, but could in the future. So I think you should get in to see Dr. Tiwari or another urologist at some point to see if you should have further evaluation to determine what kind of stone former you are (there are different types) and whether you should have further treatment. Over the next few days u ntil the stone passes take naprosyn OTC, 2 pills twice daily. You may need to supplement that with the percocet if it doesn't adequately control the pain. - Billing Disposition and Condition Condition: STABLE Disposition: Home - Attestation Statements Document Initiated by Scribe: Yes Documenting Scribe: Brijesh Flores Provider For Whom Joe is Documenting (Include Credential): Dr. Shaka Millan Scribe Attestation: I, Brijesh Flores, scribed for Dr. Shaka Millan on 06/02/19 at 2317. Scribe Documentation Reviewed: Yes Provider Attestation: The documentation as recorded by the scribe, Brijesh Flores accurately reflects the service I personally performed and the decisions made by me, Dr. Shaka Millan Status of Scribe Document: Viewed
[2019-05-29 23:37] LABS: ABS Eosinophils 0.2 10^3/ul (0-0.6); ABS Monocytes 0.6 10^3/ul (0-0.8); ABS Neutrophils 6.4 10^3/ul (1.5-7.7); Eosinophil % 1.8 %; Hematocrit 39 % (35-47); Hemoglobin 12.8 g/dL (12.0-16.0); Lymphocyte % 22.2 %; Mean Corpuscular HGB Conc 33 g/dL (31-36); Mean Corpuscular Hemoglobin 30 pg (27-31); Mean Corpuscular Volume 92 fL (80-97); Mean Platelet Volume 7.6 fL (7.4-10.4); Platelet Count 314 10^3/uL (150-450); Red Blood Count 4.21 10^6 /uL (3.70-4.87); Red Cell Distribution Width 14 % (10-15); White Blood Count 9.2 10^3/uL (3.5-10.8)
--- OUTSIDE RECORDS SUMMARY | 2019-05-30 00:07 | XMS REPORT | Continuity of Care Document ---
:1995 External Reference #:[id number] Author Name Joselin Tristan CNM Address [address] [place] [address] Problems Active Problems Provider Date Multigravida Joselin Tristan CNM Onset: 03/10/2019 Social History Type Date Description Comments Sex Unknown Tobacco Use Start: Unknown Never Smoked Cigarettes ETOH Use Does Not Drink Alcohol Recreational Drug Use Does Not Use Drugs Tobacco Use Start: Unknown Patient has never smoked Allergies, Adverse Reactions, Alerts Active Allergies Reaction Severity Comments Date Sulfa 11/24/2015 Bee Sting 11/24/2015 Medications Active Medications SIG Qnty Indications Ordering Provider Date Complete 1 by mouth every Unknown 14-0.4mg day Tablets Immunizations CPT Code Status Date Vaccine Lot # [id number] Given 03/25/2019 Tetnus, Diptheria Toxoids And Acellular Pertussis, [id number] PT > 7Yrs Old [id number] Given 03/22/2016 Tetnus, Diptheria Toxoids And Acellular Pertussis, [id number] PT > 7Yrs Old [address] Given 12/15/2015 Influenza Virus Vaccine Split Virus Use For [id number] Individual 3Yr Older Vital Signs Date Vital Result Comment 10/31/2018 8:13am BP Systolic 108 mmHg BP Diastolic 64 mmHg Height 63 inches 5'3" Weight 169.00 lb BMI (Body Mass Index) 29.9 kg/m2 Last Menstrual Period 6579984 2 Parity 1 07/18/2016 2:56pm BP Systolic 108 mmHg BP Diastolic 64 mmHg Height 63 inches 5'3" Weight 181.00 lb BMI (Body Mass Index) 32.1 kg/m2 Last Menstrual Period 4076729 1 Parity 1 Results Test Acquired Date Facility Test Result H/L Range Note Laboratory test 05/09/2019 [facility] Group B Strep SEE RESULT 1, 2 finding [place] [address] Culture BELOW [phone] Screen Laboratory test 03/10/2019 [facility] Glucose 1 HR 124 mg/dL Normal 70-160 3 finding [place] [address] Post Prandial [phone] CBC With No 03/10/2019 [facility] White Blood 10.2 Normal 3.5- 10.8 Diff [place] [address] Count 10^3/uL [phone] Red Blood Count 3.68 10^6/uL Low 3.70-4.87 Hemoglobin 12.0 g/dL Normal 12.0-16.0 Hematocrit 35 % Normal 35-47 Mean Corpuscular Volume 94 fL Normal 80-97 Mean Corpuscular Hemoglobin 33 pg High 27-31 Mean Corpuscular HGB Conc 35 g/dL Normal 31-36 Red Cell Distribution Width 13 % Normal 10-15 Platelet Count 217 10^3/uL Normal 150-450 Mean Platelet Volume 8.5 fL Normal 7.4-10.4 Comp Metabolic 02/17/2019 [facility] Sodium 139 mmol/L Normal 135-145 Panel [place] [address] [phone] Potassium 4.5 mmol/L Normal 3.5-5.0 Chloride 106 mmol/L Normal 101-111 Co2 Carbon Dioxide 27 mmol/L Normal 22-32 Anion Gap 6 mmol/L Normal 2-11 Glucose 93 mg/dL Normal 70-100 Blood Urea Nitrogen 14 mg/dL Normal 6-24 Creatinine 0.57 mg/dL Normal 0.51-0.95 BUN/Creatinine Ratio 24.6 High 8-20 Calcium 8.6 mg/dL Normal 8.6-10.3 Total Protein 5.8 g/dL Low 6.4-8.9 Albumin 3.3 g/dL Normal 3.2-5.2 Globulin 2.5 g/dL Normal 2-4 Albumin/Globulin Ratio 1.3 Normal 1-3 Total Bilirubin 0.40 mg/dL Normal 0.2-1.0 Alkaline Phosphatase 67 U/L Normal 34-104 Alt 9 U/L Normal 7-52 Ast 12 U/L Low 13-39 Egfr Non- 130.3 >60 Egfr 157.7 >60 4 Laboratory test 02/17/2019 [facility] Uric Acid 3.1 mg/dL Normal 2.3-6.6 5 [place] [address] [phone] CBC With No Diff 02/17/2019 [facility] White 10.5 Normal 3.5- 10.8 [place] [address] Blood 10^3/uL [phone] Count Red Blood Count 3.82 10^6/uL Normal 3.70-4.87 Hemoglobin 12.1 g/dL Normal 12.0-16.0 Hematocrit 36 % Normal 35-47 Mean Corpuscular Volume 94 fL Normal 80-97 Mean Corpuscular Hemoglobin 32 pg High 27-31 Mean Corpuscular HGB Conc 34 g/dL Normal 31-36 Red Cell Distribution Width 13 % Normal 10-15 Platelet Count 226 10^3/uL Normal 150-450 Mean Platelet Volume 8.7 fL Normal 7.4-10.4 Laboratory test 02/17/2019 [facility] Bile Acid 5 mcmol/L <= 10 6 [place] [address] [phone] Sequential 01/06/2019 [facility] Interpretatio SEE NOTE 7 Integrated Screen, n: Part 2(VT) Risk for Ontd <1:5000 Age Risk Down Syndrome 1:1000 JOSE Down Syndrome Risk <1:5000 <1:270 JOSE Trisomy 18 Risk <1:5000 <1:100 Calc'd Gestational Age 19.7 8 Afp, Serum 38.6 ng/mL Afp MoM 0.78 9 hCG, Serum 9.3 IU/mL hCG MoM 0.50 Estriol, Free 1.90 ng/mL Estriol MoM 1.16 Inhibin A, Dimeric 156 pg/mL Inhibin A MoM 0.91 Nathalia-A 890.7 ng/mL 10 Nathalia-A MoM 1.34 NT MoM 1.20 11 Referring Physician Name LAKISHAK Referring Physician Phone ON TEST REQ ABOV <SEE NOTE> 12 Referring Physician Npi [phone] Specimen # from Part 1 [id number] Date of 1995 Collection Date 01/06/2019 Maternal Weight 169 lbs Est'd Date of Delivery 05/27/2019 Nuchal Translucency 1.6 mm [place] Rump Length 57 mm Ultrasound Date 11/14/2018 Nasal Bone NG Mother's Ethnic Origin Insulin Depend Diabetic NO Repeat Specimen NO Number of Fetuses 1 Hx Of Neural Tube Defects NO Cigarette smoker NOT GIVEN Twin B Nasal Bone NG 13 Laboratory test 01/06/2019 [facility] Enhanced PDF Report SEE IMAGE finding [id number] Urine Drug Comp 20 11/28/2018 [facility] Urine Amphetamine Negative ng/mL 14 Test [place] [id number] [phone] Urine Barbiturates Negative ng/mL 15 Urine Benzodiazepines Negative ng/mL 16 Urine Cocaine Negative ng/mL 17 Urine Phencyclidine Negative ng/mL Cutoff: 25 Urine Tetrahydrocannabinol Negative ng/mL Cutoff: 50 18 Creatinine, Urine 95.9 mg/dL Specific [place] 1.010 pH 7.8 Oxidants Negative 19 Adulterants Comment Normal Codeine, Ur Not Detected ng/mL Cutoff: 25 20 Awmdbmx-7-fcvi-glucuronide, Ur Not Detected ng/mL 21 Morphine, Ur Not Detected ng/mL Cutoff: 25 22 Jkrjikni-5-hdsl-glucuronide, U Not Detected ng/mL 23 6-monoacetylmorphine, Ur Not Detected ng/mL Cutoff: 25 24 Hydrocodone, Ur Not Detected ng/mL Cutoff: 25 25 Norhydrocodone, Ur Not Detected ng/mL Cutoff: 25 26 Dihydrocodeine, Ur Not Detected ng/mL Cutoff: 25 27 Hydromorphone, Ur Not Detected ng/mL Cutoff: 25 28 Oerlqcglhlbjq2unkbqveepgyiwis Not Detected ng/mL 29 Oxycodone, Ur Not Detected ng/mL Cutoff: 25 30 Noroxycodone, Ur Not Detected ng/mL Cutoff: 25 31 Oxymorphone, Ur Not Detected ng/mL Cutoff: 25 32 Ulmumtrdfug-4-lbvi-glucuronide Not Detected ng/mL 33 Noroxymorphone, Ur Not Detected ng/mL Cutoff: 25 34 Fentanyl, Ur Not Detected ng/mL Cutoff: 2 35 Norfentanyl, Ur Not Detected ng/mL Cutoff: 2 36 Meperidine, Ur Not Detected ng/mL Cutoff: 25 37 Normeperidine, Ur Not Detected ng/mL Cutoff: 25 38 Naloxone, Ur Not Detected ng/mL Cutoff: 25 39 Srapddjr-8-genr-glucuronide, U Not Detected ng/mL 40 Methadone, Ur Not Detected ng/mL Cutoff: 25 41 Eddp, Ur Not Detected ng/mL Cutoff: 25 42 Propoxyphene, Ur Not Detected ng/mL Cutoff: 25 43 Norpropoxyphene, Ur Not Detected ng/mL Cutoff: 25 44 Tramadol, Ur Not Detected ng/mL Cutoff: 25 45 O-desmethyltramadol, Ur Not Detected ng/mL Cutoff: 25 46 Tapentadol, Ur Not Detected ng/mL Cutoff: 25 47 N-desmethyltapentadol, Ur Not Detected ng/mL Cutoff: 50 48 Glnztqzmqp-kwbz-twsijwfiaru, U Not Detected ng/mL 49 Buprenorphine, Ur Not Detected ng/mL Cutoff: 5 50 Norbuprenorphine, Ur Not Detected ng/mL Cutoff: 5 51 Norbuprenorphine glucuronide Not Detected ng/mL Cutoff: 20 52 Opioid Interpretation See Comment 53 1 [id number] 2 SEE RESULT BELOW Name: SYBIL SWIFT : [address]: Joselin FOSTER Acct: [id number] Unit: [id number] AGE: 24 Location: [facility] Re05/09/19 SEX: F Status: REG REF SPEC: [id number] AUGUST: 05/09/[address] [facility] [address]: Joselin Tristan CNM REQ: [id number] RECD: 05/09/19-1231 STATUS: COMP _ SOURCE: CER/VAG/RE SPDESC: ORDERED: Grp B Strp Scrn COMMENTS: [id number] QUERIES: Is Patient Penicillin Allergic? N Is patient penicillin allergic and/or sensitivities needed? N Provider Requisition # [id number] Procedure Result Reported Site Group B Strep Culture Screen Final 05/11/19- 841 [facility] Group B Strep Screen Negative * [facility] - Main Lab . END OF REPORT DEPARTMENT OF PATHOLOGY, [address] [place] [address] Kamlesh Teresa M.D. Director [facility] # [id number] 3 [id number] 4 Because ethnic data is not always readily available, this report includes an eGFR for both -Americans and non- Americans. The National Kidney Disease Education Program (NKDEP) does not endorse the use of the MDRD equation for patients that are not between the ages of 18 and 70, are , have extremes of body size, muscle mass, or nutritional status, or are non- or non-. According to the National Kidney Foundation, irrespective of diagnosis, the stage of the disease is based on the level of kidney function: Stage Description GFR(mL/min/1.73 m(2)) 1 Kidney damage with normal or decreased GFR 90 2 Kidney damage with mild decrease in GFR 60-89 3 Moderate decrease in GFR 30-59 4 Severe decrease in GFR 15-29 5 Kidney failure <15 (or dialysis) 5 [id number] 6 Test Performed by: [address] [address] [employer]: Vern Martinez M.D. Ph.D.; CLIA# [id number] 7 SCREEN NEGATIVE FOR OPEN NTD, DOWN SYNDROME AND TRISOMY 18. NT WAS USED IN THE RISK CALCULATIONS. 8 [place] rump length (CRL) was used to calculate gestational age. JUAN, if provided, was not used for gestational age dating. 9 Reference Range: <2.50 IDD <1.90 TWINS <4.00 TWINS IDD <3.50 TRIPLETS <4.50 10 This test was performed using a kit that has not been cleared or approved by the FDA. The analytical performance characteristics of this test have been determined by [facility]. This test should not be used for diagnosis without confirmation by other medically established means. 11 The Sequential Integrated Screen combines NATHALIA-A and hCG with or without a nuchal translucency measurement in the first trimester with AFP, unconjugated estriol, intact hCG and Inhibin A in the second trimester. This provides a useful screening test for detection of open neural tube defects, Down syndrome and Trisomy 18. It should be noted that normal results can never guarantee the of a normal baby and that 2 to 3 percent of newborns have some type of physical or mental defect, many of which are undetectable through any known diagnostic technique. Interpretation reviewed by: Yogesh Hinds, Ph.D., [facility]. 12 ON TEST REQ ABOVE 13 For additional information, please refer to [email or web address]/faq/FAQ94 (This link is provided for informational/educational purposes only.) This is a screening test, not a diagnostic test. This risk assessment is based on demographic data provided by the ordering physician. Please notify the laboratory promptly if any data are incorrect. It has been observed that patients who smoke cigarettes during may have a slightly increased risk of having a false positive JOSE screen for Down Syndrome or trisomy 18. If you have questions concerning this report: For clinical consultation, call ; For technical questions, call ext [phone]; For recalculations, fax to [phone]. 14 REFERENCE VALUE Cutoff: 500 15 REFERENCE VALUE Cutoff: 200 16 REFERENCE VALUE Cutoff: 100 17 REFERENCE VALUE Cutoff: 150 18 ADDITIONAL INFORMATION This report is intended for use in clinical monitoring or management of patients. It is not intended for use in employment-related testing. Test Performed by: [facility] [address] [place] [id number] [employer]: Vern Martinez M.D. Ph.D.; CLIA# [id number] 19 REFERENCE VALUE Cutoff: 200 mg/L 20 Tylenol 3 21 Metabolite of codeine REFERENCE VALUE Cutoff: 100 22 Shavon Carrion, MS Contin; Also a minor metabolite (10%) of codeine and can be seen in low concentrations (<2,000 ng/mL) with poppy seed ingestion. 23 Metabolite of morphine REFERENCE VALUE Cutoff: 100 24 Metabolite of heroin 25 Lortab, [place], Vicodin; Also a very minor metabolite of codeine and impurity (<1%) of oxycodone. 26 Metabolite of hydrocodone 27 Metabolite of hydrocodone 28 Dilaudid, Exalgo; Also a metabolite of hydrocodone and a minor (<5%) metabolite of morphine. 29 Metabolite of hydromorphone REFERENCE VALUE Cutoff: 100 30 Endocet, Percocet, Oxycontin 31 Metabolite of oxycodone 32 Numorphan, Opana; Also a metabolite of oxycodone. 33 Metabolite of oxymorphone REFERENCE VALUE Cutoff: 100 34 Metabolite of oxymorphone 35 Actiq, Duragesic, [place]ent[place] 36 Metabolite of fentanyl 37 Demerol 38 Metabolite of meperidine 39 Narcan 40 Metabolite of naloxone REFERENCE VALUE Cutoff: 100 41 Dolophine 42 Metabolite of methadone 43 Darvon, Darvocet 44 Metabolite of propoxyphene 45 Tradol, Ultram, Ultracet 46 Metabolite of tramadol 47 Nucynta 48 Metabolite of tapentadol 49 Metabolite of tapentadol REFERENCE VALUE Cutoff: 100 50 Buprenex, Suboxone 51 Metabolite of buprenorphine 52 Metabolite of buprenorphine 53 No opioids were detected. The absence of expected drug(s) and/or drug metabolite(s) may indicate non-compliance, altered pharmacokinetics, inappropriate timing of specimen collection relative to drug administration, diluted/adulterated urine, or limitations of testing. ADDITIONAL INFORMATION This test was developed and its performance characteristics determined by [facility] in a manner consistent with CLIA requirements. This test has not been cleared or approved by the U.S. Food and Drug Administration. Procedures Date Code Description Status 05/09/2019 35454 Echography Uterus Limited Completed 05/01/2019 19405 Echography Uterus Limited Completed 01/06/2019 87638 Echography Uterus Complete Completed Medical Devices Description No Information Available Encounters Description No Information Available Assessments Date Code Description Provider 05/16/2019 Z34.83 Encounter for supervision of other normal Joselin Tristan CNM , third trimester 05/09/2019 Z34.83 Encounter for supervision of other normal Joselin Tristan CNM , third trimester 05/01/2019 Z34.83 Encounter for supervision of other normal Jacy Juarez , CNM , third trimester 04/24/2019 Z34.83 Encounter for supervision of other normal Joselin Tristan CNM , third trimester 04/10/2019 Z34.83 Encounter for supervision of other normal Socorro Stubbs, CRISTIANM , third trimester 03/25/2019 Z34.83 Encounter for supervision of other normal Nilda Monroy CNM , third trimester 03/25/2019 Z23 Encounter for immunization Nilda Monroy CNM 03/10/2019 Z36.9 Encounter for screening, Katerin Schroeder MD unspecified 03/10/2019 Z36.9 Encounter for screening, Laboratory unspecified 03/10/2019 Z34.83 Encounter for supervision of other normal Joselin Tristan CNM , third trimester 02/17/2019 Z36.9 Encounter for screening, Norma Platt MD unspecified 02/17/2019 Z36.9 Encounter for screening, Laboratory unspecified 02/14/2019 Z34.82 Encounter for supervision of other normal Jacy Ann , DIANE , second trimester 01/06/2019 Z36.9 Encounter for screening, Denys Duran M.D. unspecified 01/06/2019 Z36.3 Encounter for screening for Denys Duran M.D. malformations 01/06/2019 Z34.82 Encounter for supervision of other normal Nilda Eliana, DIANE , second trimester 01/06/2019 Z36.3 Encounter for screening for Ultrasounds malformations 01/06/2019 Z36.9 Encounter for screening, Laboratory unspecified 11/28/2018 Z34.82 Encounter for supervision of other normal Socorro Stubbs CNM , second trimester Plan of Treatment Future Appointment(s):05/23/2019 9:30 am - Socorro Stubbs CNM at [facility] Functional Status Description No Information Available Mental Status Description No Information Available Referrals Refer to Reason for Referral Status Appt Date Umer Jamin second trimester has had several episodes Patient Declined of full syncope during , with loss of consciousness lasting several minutes [address] [place] [id number] [phone]
--- OUTSIDE RECORDS SUMMARY | 2019-05-30 00:07 | XMS REPORT | Continuity of Care Document ---
:1995 External Reference #:[id number] Author Name Nilda Monroy CNM (transmitted by agent of provider Jackie Palumbo) Address [address] [place] [address] Problems Active Problems Provider Date Multigravida Joselin [...] CPT Code Status Date Vaccine Lot # [id number] Given 03/25/2019 Tetnus, Diptheria Toxoids And Acellular Pertussis, [id number] PT > 7Yrs Old [address] Given 03/22/2016 Tetnus, Diptheria Toxoids And Acellular Pertussis, GS22H PT > 7Yrs Old [address]73 Given 12/15/2015 Influenza Virus Vaccine Split Virus Use For [id number] Individual 3Yr Older Vital Signs Date Vital Result Comment 10/31/2018 8:13am BP Systolic 108 mmHg BP Diastolic 64 mmHg Height 63 inches 5'3" Weight 169.00 lb BMI (Body Mass Index) 29.9 kg/m2 Last Menstrual Period 4495514 2 Parity 1 07/18/2016 2:56pm BP Systolic 108 mmHg BP Diastolic 64 mmHg Height 63 inches 5'3" Weight 181.00 lb BMI (Body Mass Index) 32.1 kg/m2 Last Menstrual Period 4155847 1 Parity 1 Results Test Acquired Date Facility Test Result H/L Range Note Laboratory test 05/09/2019 [facility] B Strep SEE RESULT 1, 2 [place] [address] Culture BELOW [phone] Screen Laboratory test 03/10/2019 [facility] Glucose 1 HR 124 mg/dL Normal 70-160 3 [place] [address] Post Prandial [phone] CBC With No 03/10/2019 [facility] White Blood 10.2 Normal 3.5- 10.8 [place] [address] Count 10^3/uL [phone] Red Blood Count 3.68 10^6/uL Low 3.70-4.87 Hemoglobin 12.0 g/dL Normal 12.0-16.0 Hematocrit 35 % Normal 35-47 Mean Corpuscular Volume 94 fL Normal 80-97 Mean Corpuscular Hemoglobin 33 pg High 27-31 Mean Corpuscular HGB Conc 35 g/dL Normal 31-36 Red Cell Distribution Width 13 % Normal 10-15 Platelet Count 217 10^3/uL Normal 150-450 Mean Platelet Volume 8.5 fL Normal 7.4-10.4 Comp Metabolic 02/17/2019 [facility] Sodium 139 mmol/L Normal 135-145 [place] [address] [phone] Potassium 4.5 mmol/L Normal 3.5-5.0 Chloride 106 [...] Egfr 157.7 >60 4 Laboratory test 02/17/2019 [facility] Uric Acid 3.1 mg/dL Normal 2.3-6.6 5 [place] [address] [phone] CBC With No Diff 02/17/2019 [facility] White 10.5 Normal 3.5- 10.8 [place] [address] Blood 10^3/uL [phone] Count Red Blood Count 3.82 10^6/uL Normal [...] 8.7 fL Normal 7.4-10.4 Laboratory test 02/17/2019 [facility] Bile Acid 5 mcmol/L <= 10 6 [place] [address] [phone] Sequential 01/06/2019 [facility] Interpretatio SEE NOTE 7 Integrated Screen, n: Part 2([place]) Risk for Ontd <1:5000 Age Risk Down [...] NT MoM 1.20 11 Referring Physician Name STORK Referring Physician Phone ON TEST REQ ABOV <SEE NOTE> 12 Referring Physician Npi [id number] Specimen # from Part 1 [id number] Date of 1995 Collection Date 01/06/2019 Maternal Weight 169 lbs Est'd Date of Delivery 05/27/2019 Nuchal Translucency 1.6 mm [place] Rump Length 57 mm Ultrasound Date 11/14/2018 Nasal Bone NG Mother's Ethnic Origin Insulin Depend Diabetic NO Repeat Specimen NO Number of Fetuses 1 Hx Of Neural Tube Defects NO Cigarette smoker NOT GIVEN Twin B Nasal Bone NG 13 Laboratory test 01/06/2019 [facility] Enhanced PDF Report SEE IMAGE finding [id number] Urine Drug Comp 20 11/28/2018 [facility] Urine Amphetamine Negative ng/mL 14 [place] [address] [phone] Urine Barbiturates Negative ng/mL 15 Urine Benzodiazepines Negative ng/mL 16 Urine Cocaine Negative ng/mL 17 Urine Phencyclidine Negative ng/mL Cutoff: 25 Urine Tetrahydrocannabinol Negative ng/mL Cutoff: 50 18 Creatinine, Urine 95.9 mg/dL Specific [place] 1.010 pH 7.8 Oxidants Negative 19 Adulterants Comment Normal Codeine, Ur Not Detected ng/mL Cutoff: 25 20 Dhbtomn-7-rwqn-glucuronide, Ur Not Detected ng/mL 21 Morphine, Ur Not Detected ng/mL Cutoff: 25 22 Beuxtwlx-6-rysr-glucuronide, U Not Detected ng/mL 23 6-monoacetylmorphine, Ur Not Detected ng/mL Cutoff: 25 24 Hydrocodone, Ur Not Detected ng/mL Cutoff: 25 25 Norhydrocodone, Ur Not Detected ng/mL Cutoff: 25 26 Dihydrocodeine, Ur Not Detected ng/mL Cutoff: 25 27 Hydromorphone, Ur Not Detected ng/mL Cutoff: 25 28 Xvjuskiszbabm7tqczytmnwrphcey Not Detected ng/mL 29 Oxycodone, Ur Not Detected ng/mL Cutoff: 25 30 Noroxycodone, Ur Not Detected ng/mL Cutoff: 25 31 Oxymorphone, Ur Not Detected ng/mL Cutoff: 25 32 Vhinigjfmdl-1-zqqu-glucuronide Not Detected ng/mL 33 Noroxymorphone, Ur Not Detected ng/mL Cutoff: 25 34 Fentanyl, Ur Not Detected ng/mL Cutoff: 2 35 Norfentanyl, Ur Not Detected ng/mL Cutoff: 2 36 Meperidine, Ur Not Detected ng/mL Cutoff: 25 37 Normeperidine, Ur Not Detected ng/mL Cutoff: 25 38 Naloxone, Ur Not Detected ng/mL Cutoff: 25 39 Mjuoyqvm-5-xstq-glucuronide, U Not Detected ng/mL 40 Methadone, Ur [...] Ur Not Detected ng/mL Cutoff: 50 48 Auixfxkitf-ugqp-ssqkbvesiwc, U Not Detected ng/mL 49 Buprenorphine, Ur Not Detected ng/mL Cutoff: 5 50 Norbuprenorphine, Ur Not Detected ng/mL Cutoff: 5 51 Norbuprenorphine glucuronide Not Detected ng/mL Cutoff: 20 52 Opioid Interpretation See Comment 53 1 [id number] 2 SEE RESULT BELOW Name: SYBIL SWIFT : [address]: Joselin Tristan CNM Acct: [id number] Unit: [id number] AGE: 24 Location: [facility] Re05/09/19 SEX: F Status: REG REF SPEC: [id number] AUGUST: 05/09/19-[address]: Joselin Tristan CNM REQ: [id number] RECD: 05/09/19-1231 STATUS: COMP _ SOURCE: CER/VAG/RE SPDESC: ORDERED: Grp B Strp Scrn COMMENTS: [id number] QUERIES: Is Patient Penicillin Allergic? N Is patient penicillin allergic and/or sensitivities needed? N Provider Requisition # C77#[id number]_ Procedure Result Reported Site Group B Strep Culture Screen Final 05/11/19- 841 ML Group B Strep Screen Negative * ML - Main Lab . END OF REPORT DEPARTMENT OF PATHOLOGY, [address] [place] [address] Kamlesh Teresa M.D. Director [facility] # [id number] 3 [id number] 4 Because ethnic data is not always [...] 5 Kidney failure <15 (or dialysis) 5 [id number] 6 Test Performed by: [place] [address] Straight Edger: Vern Martinez M.D. Ph.D.; CLIA# [id number] 7 SCREEN NEGATIVE FOR OPEN NTD, DOWN SYNDROME AND TRISOMY 18. NT WAS USED IN THE RISK CALCULATIONS. 8 [place] rump length (CRL) was used to calculate gestational age. JUAN, if provided, was not used for gestational age dating. 9 Reference Range: <2.50 IDD <1.90 TWINS <4.00 TWINS IDD <3.50 TRIPLETS <4.50 10 This test was performed using a kit that has not been cleared or approved by the FDA. The analytical performance characteristics of this test have been determined by [facility]. This test should not be used [...] technique. Interpretation reviewed by: Yogesh Hinds, Ph.D., [facility]. 12 ON TEST REQ ABOVE 13 For additional information, please refer to [email or web address]/[email or web address] (This link is provided for informational/educational purposes [...] call ; For technical questions, call ext [phone]; For recalculations, fax to [phone]. 14 REFERENCE VALUE Cutoff: 500 15 REFERENCE VALUE Cutoff: 200 16 REFERENCE VALUE Cutoff: 100 17 REFERENCE VALUE Cutoff: 150 18 ADDITIONAL INFORMATION This report is intended for use in clinical monitoring or management of patients. It is not intended for use in employment-related testing. Test Performed by: [facility] - [address] [address] Straight Edger: Vern Martinez M.D. Ph.D.; CLIA# [id number] 19 REFERENCE VALUE Cutoff: 200 mg/L 20 Tylenol 3 21 Metabolite of codeine REFERENCE VALUE Cutoff: 100 22 Shavon Carrion, [place] Contin; Also a minor metabolite (10%) of codeine and can be seen in low concentrations (<2,000 ng/mL) with poppy seed ingestion. 23 Metabolite of morphine REFERENCE VALUE Cutoff: 100 24 Metabolite of heroin 25 Lortab, [place], Vicodin; Also a very minor metabolite of [...] developed and its performance characteristics determined by [facility] in a manner consistent with CLIA requirements. This test has not been cleared or approved by the U.S. Food and Drug Administration. Procedures Date Code Description Status 05/22/2019 91764 Obstetric Care Routine Completed 05/09/2019 42852 Echography Uterus Limited Completed 05/01/2019 76078 Echography Uterus Limited Completed 01/06/2019 62788 Echography Uterus Complete Completed Medical Devices Description No Information Available Encounters Description No Information Available Assessments Date Code Description Provider 05/22/2019 O80 Encounter for full-term uncomplicated Nilda Monroy CNM delivery 05/22/2019 Z39.0 Encounter for care and examination of mother Nilda Monroy CNM immediately after delivery 05/22/2019 Z37.0 Single live Nilda Monroy CNM 05/16/2019 Z34.83 Encounter for supervision of other normal Joselin Tristan CNM , third trimester 05/09/2019 Z34.83 Encounter for supervision of other normal Joselin Tristan CNM , third trimester 05/01/2019 Z34.83 Encounter for supervision of other normal Jacy Juarez CNM , third trimester 04/24/2019 Z34.83 Encounter for supervision of other normal Joselin Tristan CNM , third trimester 04/10/2019 Z34.83 Encounter for supervision of other normal Socorro Stubbs CNM , third trimester 03/25/2019 Z34.83 Encounter for supervision of other normal Nilda Monroy CNM , third trimester 03/25/2019 Z23 Encounter for immunization Nilda Monroy CNM 03/10/2019 Z36.9 Encounter for screening, Katerin Schroeder MD unspecified 03/10/2019 Z36.9 Encounter for screening, Laboratory unspecified 03/10/2019 Z34.83 Encounter for supervision of other normal Joselin Tristan, [facility] , third trimester 02/17/2019 Z36.9 Encounter for screening, Norma Platt MD unspecified 02/17/2019 Z36.9 Encounter for screening, Laboratory unspecified 02/14/2019 Z34.82 Encounter for supervision of other normal Jacy Miliandukemargo , [facility] , second trimester 01/06/2019 Z36.9 Encounter for screening, Denys Duran M.D. unspecified 01/06/2019 Z36.3 Encounter for screening for Denys Duran M.D. malformations 01/06/2019 Z34.82 [facility] , second trimester 01/06/2019 Z36.3 Encounter for screening for Ultrasounds malformations 01/06/2019 Z36.9 Encounter for screening, Laboratory unspecified 11/28/2018 Z34.82 Encounter for supervision of other normal [facility] , second trimester Plan of Treatment No Information Available Functional Status Description No Information Available Mental Status Description No Information Available Referrals Refer to Reason for Referral Status Appt Date [facility] second trimester has had several episodes Patient Declined of full syncope during , with loss of consciousness lasting several minutes [address] [place] [address] [phone]
--- OUTSIDE RECORDS SUMMARY | 2019-05-30 00:07 | XMS REPORT | Continuity of Care Document ---
:1995 External Reference #:[id number] Author Name Joselin Tristan CNM (transmitted by agent of provider Jackie Palumbo) Address [address] [place] [address] Problems Active Problems Provider Date Multigravida Joselin [...] CPT Code Status Date Vaccine Lot # [id number] Given 03/25/2019 Tetnus, Diptheria Toxoids And Acellular Pertussis, XF3RY PT > 7Yrs Old [address] Given 03/22/2016 Tetnus, Diptheria Toxoids And Acellular Pertussis, GS22H PT > 7Yrs Old [address] Given 12/15/2015 Influenza Virus Vaccine Split Virus Use For [id number] Individual 3Yr Older Vital Signs Date Vital Result Comment 10/31/2018 8:13am BP Systolic 108 mmHg BP Diastolic 64 mmHg Height 63 inches 5'3" Weight 169.00 lb BMI (Body Mass Index) 29.9 kg/m2 Last Menstrual Period 8771801 2 Parity 1 07/18/2016 2:56pm BP Systolic 108 mmHg BP Diastolic 64 mmHg Height 63 inches 5'3" Weight 181.00 lb BMI (Body Mass Index) 32.1 kg/m2 Last Menstrual Period 7146006 1 Parity 1 Results Test Acquired Date Facility Test Result H/L Range Note Laboratory test 05/09/2019 [facility] Strep SEE RESULT 1, 2 [place] [address] Culture BELOW [phone] Screen Laboratory test 03/10/2019 [facility] Glucose 1 HR 124 mg/dL Normal 70-160 3 [place] [address] Post Prandial [phone] CBC With No 03/10/2019 [facility] White Blood 10.2 Normal 3.5- 10.8 [place] [address] Count 10^3/uL [phone] Red Blood Count 3.68 10^6/uL Low 3.70-4.87 Hemoglobin 12.0 g/dL Normal 12.0-16.0 Hematocrit 35 % Normal 35-47 Mean Corpuscular Volume 94 fL Normal 80-97 Mean Corpuscular Hemoglobin 33 pg High 27-31 Mean Corpuscular HGB Conc 35 g/dL Normal 31-36 Red Cell Distribution Width 13 % Normal 10-15 Platelet Count 217 10^3/uL Normal 150-450 Mean Platelet Volume 8.5 fL Normal 7.4-10.4 Comp Metabolic 02/17/2019 [facility] Sodium 139 mmol/L Normal 135-145 [place] [address] [phone] Potassium 4.5 mmol/L Normal 3.5-5.0 Chloride 106 [...] Egfr 157.7 >60 4 Laboratory test 02/17/2019 [facility] Uric Acid 3.1 mg/dL Normal 2.3-6.6 5 [place] [address] [phone] CBC With No Diff 02/17/2019 [facility] White 10.5 Normal 3.5- 10.8 [place] [address] Blood 10^3/uL [phone] Count Red Blood Count 3.82 10^6/uL Normal [...] 8.7 fL Normal 7.4-10.4 Laboratory test 02/17/2019 [facility] Bile Acid 5 mcmol/L <= 10 6 [place] [address] [phone] Sequential 01/06/2019 [facility] Interpretatio SEE NOTE 7 Integrated Screen, n: Part 2([place]) Risk for Ontd <1:5000 Age Risk Down [...] ABOV <SEE NOTE> 12 Referring Physician Npi [id number] Specimen # from Part 1 [id number] Date of 1995 Collection Date 01/06/2019 Maternal Weight 169 lbs Est'd Date of Delivery 05/27/2019 Nuchal Translucency 1.6 mm Emma Rump Length 57 mm Ultrasound Date 11/14/2018 Nasal Bone NG Mother's Ethnic Origin Insulin Depend Diabetic NO Repeat Specimen NO Number of Fetuses 1 Hx Of Neural Tube Defects NO Cigarette smoker NOT GIVEN Twin B Nasal Bone NG 13 Laboratory test 01/06/2019 [facility] Enhanced PDF Report SEE IMAGE finding [id number] Urine Drug Comp 20 11/28/2018 [facility] Urine Amphetamine Negative ng/mL 14 [place] [address] [phone] Urine Barbiturates Negative ng/mL 15 Urine Benzodiazepines Negative ng/mL 16 Urine Cocaine Negative ng/mL 17 Urine Phencyclidine Negative ng/mL Cutoff: 25 Urine Tetrahydrocannabinol Negative ng/mL Cutoff: 50 18 Creatinine, Urine 95.9 mg/dL Specific [place] 1.010 pH 7.8 Oxidants Negative 19 Adulterants Comment Normal Codeine, Ur Not Detected ng/mL Cutoff: 25 20 Ttlgbkt-6-zmsq-glucuronide, Ur Not Detected ng/mL 21 Morphine, Ur Not Detected ng/mL Cutoff: 25 22 Yfxdumzn-4-ufsy-glucuronide, U Not Detected ng/mL 23 6-monoacetylmorphine, Ur Not Detected ng/mL Cutoff: 25 24 Hydrocodone, Ur Not Detected ng/mL Cutoff: 25 25 Norhydrocodone, Ur Not Detected ng/mL Cutoff: 25 26 Dihydrocodeine, Ur Not Detected ng/mL Cutoff: 25 27 Hydromorphone, Ur Not Detected ng/mL Cutoff: 25 28 Txwsqrayvaejx1smgrvvcacbsckap Not Detected ng/mL 29 Oxycodone, Ur Not Detected ng/mL Cutoff: 25 30 Noroxycodone, Ur Not Detected ng/mL Cutoff: 25 31 Oxymorphone, Ur Not Detected ng/mL Cutoff: 25 32 Chtvgietcqd-8-dfqy-glucuronide Not Detected ng/mL 33 Noroxymorphone, Ur Not Detected ng/mL Cutoff: 25 34 Fentanyl, Ur Not Detected ng/mL Cutoff: 2 35 Norfentanyl, Ur Not Detected ng/mL Cutoff: 2 36 Meperidine, Ur Not Detected ng/mL Cutoff: 25 37 Normeperidine, Ur Not Detected ng/mL Cutoff: 25 38 Naloxone, Ur Not Detected ng/mL Cutoff: 25 39 Wowdwynh-4-uqse-glucuronide, U Not Detected ng/mL 40 Methadone, Ur [...] Ur Not Detected ng/mL Cutoff: 50 48 Yjnnqzpybs-tqgv-puvkpoqgwmz, U Not Detected ng/mL 49 Buprenorphine, Ur Not Detected ng/mL Cutoff: 5 50 Norbuprenorphine, Ur Not Detected ng/mL Cutoff: 5 51 Norbuprenorphine glucuronide Not Detected ng/mL Cutoff: 20 52 Opioid Interpretation See Comment 53 1 [id number] 2 SEE RESULT BELOW Name: SYBIL SWIFT : [address]: Joselin Tristan CNM Acct: [id number] Unit: [id number] AGE: 24 Location: [facility] Re05/09/19 SEX: F Status: REG REF SPEC: [id number] AUGUST: 05/09/19-[address]: Joselin Tristan CNM REQ: [id number] RECD: 05/09/19-1231 STATUS: COMP _ SOURCE: CER/VAG/RE SPDESC: ORDERED: Grp B Strp Scrn COMMENTS: [id number] QUERIES: Is Patient Penicillin Allergic? N Is patient penicillin allergic and/or sensitivities needed? N Provider Requisition # C77#[id number] Procedure Result Reported Site Group B Strep Culture Screen Final 05/11/19- 841 ML Group B Strep Screen Negative * ML - Main Lab . END OF REPORT DEPARTMENT OF PATHOLOGY, [address] [place] [address] Kamlesh Teresa M.D. Director [facility] # [id number] 3 [id number] 4 Because ethnic data is not always [...] 5 Kidney failure <15 (or dialysis) 5 [id number] 6 Test Performed by: [place] [address] [employer] [place] Worker: Vern Martinez M.D. Ph.D.; CLIA# [id number] 7 SCREEN NEGATIVE FOR OPEN NTD, DOWN SYNDROME AND TRISOMY 18. NT WAS USED IN THE RISK CALCULATIONS. 8 Emma rump length (CRL) was used to calculate gestational age. JUAN, if provided, was not used for gestational age dating. 9 Reference Range: <2.50 IDD <1.90 TWINS <4.00 TWINS IDD <3.50 TRIPLETS <4.50 10 This test was performed using a kit that has not been cleared or approved by the FDA. The analytical performance characteristics of this test have been determined by [facility]. This test should not be used for [...] technique. Interpretation reviewed by: Yogesh Hinds, Ph.D., [facility]. 12 ON TEST REQ ABOVE 13 For additional information, please refer to [email or web address]/[email or web address] (This link is provided for informational/educational purposes [...] call ; For technical questions, call ext [phone]; For recalculations, fax to [phone]. 14 REFERENCE VALUE Cutoff: 500 15 REFERENCE VALUE Cutoff: 200 16 REFERENCE VALUE Cutoff: 100 17 REFERENCE VALUE Cutoff: 150 18 ADDITIONAL INFORMATION This report is intended for use in clinical monitoring or management of patients. It is not intended for use in employment-related testing. Test Performed by: [facility] [place] [address] [place] [address] [employer] [place] Worker: Vern Martinez M.D. Ph.D.; CLIA# [id number] 19 REFERENCE VALUE Cutoff: 200 mg/L 20 Tylenol 3 21 Metabolite of codeine REFERENCE VALUE Cutoff: 100 22 Shavon Carrion, [place] Contin; Also a minor metabolite (10%) of codeine and can be seen in low concentrations (<2,000 ng/mL) with poppy seed ingestion. 23 Metabolite of morphine REFERENCE VALUE Cutoff: 100 24 Metabolite of heroin 25 Lortab, [place], Vicodin; Also a very minor metabolite of [...] developed and its performance characteristics determined by [facility] in a manner consistent with CLIA requirements. This test has not been cleared or approved by the U.S. Food and Drug Administration. Procedures Date Code Description Status 05/09/2019 87538 Echography Uterus Limited Completed 05/01/2019 70189 Echography Uterus Limited Completed 01/06/2019 25684 Echography Uterus Complete Completed Medical Devices Description [...] supervision of other normal Jacy Juarez , [facility]ST[facility] , second trimester 01/06/2019 Z36.9 Encounter for screening, Denys Duran M.D. unspecified 01/06/2019 Z36.3 Encounter for screening for Denys Duran M.D. malformations 01/06/2019 Z34.82 Encounter for supervision of other normal Nilda Monroy CNM , second trimester 01/06/2019 Z36.3 Encounter for screening for Ultrasounds malformations 01/06/2019 Z36.9 Encounter for screening, Laboratory unspecified 11/28/2018 Z34.82 Encounter for supervision of other normal Socorro Stubbs CNM , second trimester Plan of Treatment Future Appointment(s):05/23/2019 9:30 am - Socorro Stubbs CNM at [facility] Functional Status Description No Information Available Mental Status Description No Information Available Referrals Refer to Reason for Referral Status Appt Date Umer Jordancolm second trimester has had several episodes Patient Declined of full syncope during , with loss of consciousness lasting several minutes [facility] [facility] [address] [phone]
[2019-05-30 00:13] LABS: Albumin 3.5 g/dL (3.2-5.2); Calcium 8.8 mg/dL (8.6-10.3); Potassium 4.1 mmol/L (3.5-5.0); Total Bilirubin 0.3 mg/dL (0.2-1.0)
[2019-05-30 00:19] LABS: Albumin/Globulin Ratio 1.3 (1-3); BUN/Creatinine Ratio 17.4 (8-20); EGFR African American 59.3 (>60); Globulin 2.7 g/dL (2-4); Total Protein 6.2 g/dL (6.4-8.9)
[2019-05-30] MEDS ORDERED: oxyCODONE/Acetamin 5/325 MG* TAB PO ONE (00:26)
[2019-05-30 01:20] LABS: Urine Appearance Cloudy; Urine Bacteria Absent (Absent); Urine Bilirubin Negative (Negative); Urine Blood 3+ (Negative); Urine Glucose Negative (Negative); Urine Ketones Negative (Negative); Urine Nitrite Negative (Negative); Urine Protein 2+(100 mg/dL) (Negative); Urine Red Blood Cell 3+(>10/hpf) (Absent); Urine Specific Gravity 1.023 (1.010-1.030); Urine Squamous Epithelial Cell Present (Absent); Urine Transitional Epithelial Present (Absent); Urine Urobilinogen Negative (Negative); Urine White Blood Cell 3+(>20/hpf) (Absent)
[2019-05-30 01:21] LABS: Urine Color Red
[2019-05-30 01:42] VITALS: BP 118/76
== END 2019-05-30 01:30 | disposition home or self-care (01) ==
LOC: ED 22:58
DX: N20.0 Calculus of kidney (principal); R10.84 Generalized abdominal pain; R11.0 Nausea; K21.9 Gastro-esophageal reflux disease without esophagitis; R51 Headache; Z88.2 Allergy status to sulfonamides; Z86.79 Personal history of other diseases of the circulatory system
CPT/HCPCS: 36415; 74176; 80053; 81003; 81015; 85025; 87086; 96361; 96374; 96375; 99284; A9270-GY; J1885; J2405